=== PATIENT | female | born 1955 | race Caucasian/White ===

== ENCOUNTER → 2020-07-11 11:32 | Outpatient (BNVA) | payer MEDICARE, MEDICAID, SELFPAY | PROVIDERS: PCP Nurse Practitioner Family; Referring Provider Nurse Practitioner Family; Visit Provider Surgery | DX: Z76.89 Persons encountering health services in other specified circumstances (principal) ==

== ENCOUNTER → 2020-08-15 08:57 | Outpatient (BNVA) | payer MEDICARE, MEDICAID, SELFPAY | PROVIDERS: PCP Nurse Practitioner Family; Visit Provider Surgery | DX: Z76.89 Persons encountering health services in other specified circumstances (principal) ==

== ENCOUNTER 2020-11-07 14:12 | Outpatient (REF) | payer MEDICARE, MEDICAID, SELFPAY | END 2020-11-07 14:13 | disposition home or self-care (01) | LOC: HO.LAB 14:12 | PROVIDERS: Visit Provider Internal Medicine | DX: Z20.822 Contact with and (suspected) exposure to COVID-19 (principal) | CPT/HCPCS: 36415; C9803; U0003; U0005 ==

== ENCOUNTER 2021-02-16 13:45 | Outpatient (REF) | payer MEDICARE, OTHER, SELFPAY ==
[2021-02-16 15:27] LABS: Albumin Level 3.8 g/dL (3.5-5.0); Calcium 9.7 mg/dL (8.4-10.2)
[2021-02-16 15:56] LABS: Free T4 (Free Thyroxine) 1.08 ng/dL (0.71-1.85); Thyroid Stimulating Hormone 1.31 uIU/mL (0.32-4.0); Vitamin D 25-OH Total 34.3 ng/mL (>30)
== END 2021-02-16 13:46 | disposition home or self-care (01) ==
LOC: HO.LAB 13:45
PROVIDERS: PCP Nurse Practitioner Family; Visit Provider Internal Medicine Endocrinology, Diabetes & Metabolism
DX: E03.8 Other specified hypothyroidism (principal); E06.3 Autoimmune thyroiditis; E04.2 Nontoxic multinodular goiter; Z79.899 Other long term (current) drug therapy; Z86.39 Personal history of other endocrine, nutritional and metabolic disease
CPT/HCPCS: 36415; 82040; 82306; 82310; 84439; 84443; 99212

== ENCOUNTER 2021-02-27 12:37 | Outpatient (REF) | payer MEDICARE, OTHER, SELFPAY ==
--- NOTE | ~2021-02-27 | US_ITS ---
EXAMINATION: US THYROID CLINICAL INFORMATION: Nontoxic multinodular goiter. COMPARISON: Thyroid ultrasound 05/17/2020 and 09/08/2018. Ultrasound-guided thyroid biopsy 05/07/2019. TECHNIQUE: Linear transducer lynch-scale and color Doppler examination with attention to the region of the thyroid. FINDINGS: SIZE: Measurements of the thyroid lobes and nodules are given in sagittal, anteroposterior and transverse dimensions respectively. Right Thyroid Lobe: 4.0 x 2.3 x 2.4 cm, volume 11.8 mL. Previously 4.4 x 1.7 x 1.7 cm, volume 6.7 mL. Parenchyma: The gland echotexture is heterogeneous. Thyroid vascularity is increased. Left Thyroid Lobe: 4.5 x 1.8 x 1.7 cm, volume 7.2 mL. Previously 4.4 x 1.6 x 1.6 cm, volume 5.5 mL. Parenchyma: The gland echotexture is heterogeneous. Thyroid vascularity is increased. Isthmus: 0.7 cm in maximum AP dimension. Previously 0.6 cm. Estimated total number of nodules greater than or equal to 1 cm: 1. Manager Of Compliance nodules are described as follows: 1. Location: Right upper pole. Size: 1.0 x 0.6 x 1.0 cm, volume 0.3 mL. Previously: 1.2 x 0.8 x 1.2 cm, volume 1.1 mL. Nodule characteristics: Composition: Solid/almost completely solid (2). Echogenicity: Isoechoic (1). Shape: Not taller than wide (0). Margins: Smooth (0). Echogenic Foci: None (0). ACR TI-RADS total points: 3 ACR TI-RADS category: 3 Significant change in size (>/= 20% in 2 dimensions and minimal increase of 2 mm or 50% or greater increase in volume): No. Decreased size of nodule. Change in features: No Change in ACR TI-RADS risk category: No NODES: No lymphadenopathy is seen in the tissue surrounding the thyroid gland. US/US thyroid IMPRESSION: Enlarged heterogeneous hypervascular thyroid gland. Interval decrease in size in solitary right nodule. Compared to most recent exam May 2020. ACR TI-RADS RECOMMENDATION REFERENCE: Ultrasound-guided fine-needle aspiration, followup ultrasound, no further follow up. * TR1 (0 point) and TR 2 (2 points): No FNA or follow up * TR3 (3 points): FNA if more than or equal to 2.5 cm in maximum dimension, followup ultrasound in 1, 3 and 5 years if 1.5 to 2.4 cm in maximum dimension. * TR4 (4-6 points): FNA if more than or equal to 1.5 cm in maximum dimension, followup ultrasound in 1, 2, 3 and 5 years if 1 to 1.4 cm in maximum dimension. * TR5 (more than or equal to 7 points): FNA if more than or equal to 1 cm in maximum dimension, followup ultrasound every year for 5 years if 0.5 to 0.9 cm in maximum dimension. * TR3, TR4 or TR5 nodules that are below the size threshold for follow up receive no follow up.
== END 2021-02-27 12:38 | disposition home or self-care (01) ==
LOC: HO.US 12:37
PROVIDERS: Visit Provider Internal Medicine Endocrinology, Diabetes & Metabolism
DX: E04.2 Nontoxic multinodular goiter (principal)
CPT/HCPCS: 76536

== ENCOUNTER 2021-09-18 10:29 | Emergency (ER) | payer MEDICARE, OTHER, SELFPAY ==
--- NOTE | ~2021-09-18 | XR_ITS ---
EXAMINATION: CT HEAD XR LUMBAR SPINE CLINICAL INFORMATION: Fall and pain with back pain. COMPARISON: None. TECHNIQUE: 5 mm thin axial and reformatted 2 mm thin sagittal and coronal images of brain were obtained. DLP 615 mGy/cm. Lumbar spine 3 views FINDINGS: BRAIN: There is no acute intra-axial or extra-axial bleed, masses or midline shift. There is no acute infarction evolution. There is no edema. The lateral ventricles are symmetrical in size and configuration without enlargement. Bone windows with no calvarial abnormality. There is no scalp soft tissue abnormality. There is a small polyp or retention cyst left maxillary sinus. Rest of the paranasal sinuses are well aerated. LUMBAR SPINE: There is normal lumbar lordosis. The vertebral heights, alignment and disc heights are normal. There is no visible acute fracture, dislocation or lytic process seen. There is lateral spondylosis at L1-L2, L2-L3 and L3-L4 disc levels. No lytic process seen. The paravertebral soft tissues are normal. The SI joints are symmetrical and normal. XR/XR lumbar spine 2-3V IMPRESSION: No acute intracranial process seen. No acute fracture or dislocation lumbar spine. There is mild lateral spondylosis of upper lumbar spine.
--- NOTE | 2021-09-18 12:36 | ED_ITS ---
HPI - Fall General Stated Complaint: injury from fall (hit head) Time Seen by Provider: 09/18/21 12:35 Source: patient Mode of arrival: ambulatory Limitations: no limitations History of Present Illness HPI Narrative: 4 days ago patient fell down 5 stairs. She tripped over her skirt. Patient hit her head really hard. No LOC. Patient with increased low back pain and headache. No nausea or vomiting. MD complaint: fall Onset (ago): day(s) Fall from: standing and down stairs (#) (5) Fall witnessed: no Place fall occurred: home Loss of consciousness: none Symptoms prior to fall: none Context: tripped/slipped Location of injury: head and back Related Data Home Medications Medication Instructions Recorded Confirmed aspirin 81 mg tablet,delayed 81 mg PO DAILY 07/09/20 02/16/21 release cephalexin 500 mg capsule 500 mg PO Q12H 07/09/20 02/16/21 hydrochlorothiazide 25 mg tablet 25 mg PO DAILY 02/16/21 02/16/21 pantoprazole 40 mg tablet,delayed 40 mg PO DAILY 02/16/21 02/16/21 release sennosides 8.6 mg tablet [id number]? mg PO BEDTIME PRN 02/16/21 02/16/21 Previous Rx's Medication Instructions Recorded calcium citrate 500 mg PO BID 90 Days #360 tab 02/16/21 cholecalciferol (vitamin D3) 125 125 mcg PO DAILY 90 Days #90 tab 02/16/21 mcg (5,000 unit) tablet levothyroxine 75 mcg tablet 75 mcg PO DAILY 90 Days #90 tab 02/16/21 cyclobenzaprine 10 mg tablet 10 mg PO TID #10 tab 09/18/21 meloxicam 7.5 mg tablet (Mobic) 7.5 mg PO DAILY #14 tab 09/18/21 Allergies Allergy/AdvReac Type Severity Reaction Status Date / Time No Known Allergies Allergy Unverified 06/23/20 16:53 [No Known Allergies*] NKA Allergy Unknown Uncoded 02/04/20 00:00 Review of Systems Constitutional: Constitutional: Reports no additional constitutional complaints Eyes: Eyes: Reports no additional eye complaints ENT: Denies dizziness Cardiovascular: Cardiovascular: Reports no additional cardiovascular complaints Respiratory: Respiratory: Reports as per HPI Gastrointestinal: Gastrointestinal: Reports no additional gastrointestinal complaints Genitourinary: Genitourinary: Reports no additional female genitourinary complaints Musculoskeletal: Musculoskeletal: Reports no additional musculoskeletal complaints Integumentary/Breasts: Skin/Breast: Denies rash Neurologic: Reports system reviewed and no additional complaints, except as documented, Denies dizziness and Denies Sensory deficit (Neuro) Psychiatric: Psychiatric: Denies anxiety [facility] Past Medical History Medical History (Updated 09/18/21 @ 13:36 by Shar Cisneros MD) History of primary hyperparathyroidism Hypothyroidism Intestinal malabsorption Non-toxic multinodular goiter Obesity Surgical History (Updated 07/09/20 @ 10:42 by Abdirahman Miranda SYSTEMS TESTING LABORATORY TECHNICIAN) H/O hand surgery H/O knee surgery H/O partial thyroidectomy History of colonoscopy Hx of tubal ligation Family History Family History (Updated 07/09/20 @ 10:44 by Abdirahman Miranda SYSTEMS TESTING LABORATORY TECHNICIAN) Father No problems noted. Mother No problems noted. Brother No problems noted. Sister No problems noted. Sister No problems noted. Sister No problems noted. Sister No problems noted. Son No problems noted. Son No problems noted. Son No problems noted. Daughter Congenital hypothyroidism Social History Social History (Updated 07/27/20 @ 13:53 by Abdirahman Miranda SYSTEMS TESTING LABORATORY TECHNICIAN) Alcohol intake: never Advance Directives: No Advance Directives Information Provided: No Physical Exam Const: General: healthy appearing Nutritional Appearance: average body habitus Orientation/consciousness: oriented to person and patient oriented x3 Limitations: no limitations HENMT: Head: Yes normal to inspection Ears: external ears normal General nose exam: Normal external nose present Mouth: Normal oral and palatal mucosa present and oropharynx normal Throat: Yes posterior oropharynx normal Eyes: General: appearance normal, both eyes and all related structures Neck: Other: supple Neck: Yes normal visual inspection Chest: Chest palpation & inspection: normal inspection of the chest Resp: Auscultation: clear to auscultation bilaterally Cardio: Jugular venous distension: no JVD Rate: regular rate Rhythm: regular rhythm Heart sounds: S1 normal heart sound present and S2 normal heart sound present GI: Inspection: Yes normal to inspection Palpation (GI): Soft to palpation, nontender and No hepatosplenomegaly present Auscultation: normal bowel sounds : General: Yes no CVA tenderness Back/Spine/Pelvis: Back: no CVA tenderness Skin: General skin exam: no rashes or lesions noted Neuro: General: oriented to person and patient oriented x3 Cranial nerves: Yes CN's II-XII intact bilaterally Motor exam (neuro): 5/5 motor strength present throughout Sensory Exam: No Sensory deficit (Neuro) Extrem: General: Yes normal to inspection Psych: Appearance: grossly normal Course Reevaluation(s) Reevaluation #1: no fractures seen will get patient on NSAIDs and low dose muscle relaxant Time: 13:34 MDM - Fall Imaging Data lumbar spine, left hip, left ankle: Radiologist's impression: IMPRESSION: L3 compression deformity likely old. There are degenerative disc changes lower dorsal and upper lumbar spine. ? Degenerative changes right hip joint. There is no fracture or dislocation of the pelvis or the left hip. ? No acute fracture or dislocation left ankle. There is a lateral plate and screws for an old healed fibular fracture and a solitary compression screw for a right medial malleolar fracture. Discharge Plan Discharge Clinical Impression: Back strain Qualifiers: Encounter type: initial encounter Qualified Code(s): S39.012A - Strain of muscle, fascia and tendon of lower back, initial encounter Contusion of hip Qualifiers: Encounter type: initial encounter Laterality: left Qualified Code(s): S70.02XA - Contusion of left hip, initial encounter Ankle sprain Qualifiers: Encounter type: initial encounter Involved ligament of ankle: unspecified ligament Laterality: left Qualified Code(s): S93.402A - Sprain of unspecified ligament of left ankle, initial encounter Patient Disposition: Home, Self-Care Instructions: Ankle Sprain (ED), Acute Low Back Pain (ED), Hip Contusion (ED) Prescriptions: New meloxicam [Mobic] 7.5 mg tablet 7.5 mg PO DAILY Qty: 14 RF: 0 cyclobenzaprine 10 mg tablet 10 mg PO TID Qty: 10 RF: 0 No Action pantoprazole 40 mg tablet,delayed release (DR/EC) 40 mg PO DAILY RF: 0 sennosides 8.6 mg tablet [id number]? mg PO BEDTIME PRN (Reason: constipation) RF: 0 hydrochlorothiazide 25 mg tablet 25 mg PO DAILY RF: 0 levothyroxine 75 mcg tablet 75 mcg PO DAILY 90 Days Qty: 90 RF: 3 calcium citrate 250 mg calcium tablet 500 mg PO BID 90 Days Qty: 360 RF: 3 cholecalciferol (vitamin D3) 125 mcg (5,000 unit) tablet 125 mcg PO DAILY 90 Days Qty: 90 RF: 3 cephalexin 500 mg capsule 500 mg PO Q12H RF: 0 aspirin 81 mg tablet,delayed release (DR/EC) 81 mg PO DAILY RF: 0 Referrals: Physician,Unknown J [Primary Care Provider] - 1 week
[2021-09-18 15:47] VITALS: BP 183/94; PULSE 58; RESP 16; TEMP 36.7; O2SAT 98; BMI 31.8
== END 2021-09-18 17:27 | disposition home or self-care (01) ==
PROVIDERS: Emergency Provider Emergency Medicine
DX: S39.012A Strain of muscle, fascia and tendon of lower back, initial encounter (principal); S70.02XA Contusion of left hip, initial encounter; S93.402A Sprain of unspecified ligament of left ankle, initial encounter; W10.9XXA Fall (on) (from) unspecified stairs and steps, initial encounter; Y93.9 Activity, unspecified; Y92.009 Unspecified place in unspecified non-institutional (private) residence as the place of occurrence of the external cause; Y99.9 Unspecified external cause status
CPT/HCPCS: 70450; 72100; 99283; 99284

== ENCOUNTER 2021-12-25 13:34 | Outpatient (REF) | payer MEDICARE, OTHER, SELFPAY ==
[2021-12-25 15:13] LABS: MANUAL DIFF FLAG NO
[2021-12-25 15:32] LABS: Basophils Percent Auto 0.6 % (0-2); Eosinophils Absolute Auto 0.2 X10*3/uL (0.0-0.4); Eosinophils Percent Auto 3.4 % (0-4); Hematocrit 34.1 % (37.0-47.0); Hemoglobin 11.3 g/dl (12.0-16.0); Imm Gran Abs Auto 0.02 X10*3/uL (0.00-0.03); Imm Gran Pct Auto 0.4 % (0.0-0.4); Lymphocytes Percent Auto 38.6 % (20-40); Mean Corpuscular HGB Conc 33.1 g/dl (31.0-35.0); Mean Corpuscular Hemoglobin 28.4 pg (27.0-33.0); Mean Corpuscular Volume 85.7 fL (80.0-98.0); Mean Platelet Volume 10.4 fL (9.4-12.3); Monocytes Absolute Auto 0.4 X10*3/uL (0.1-1.2); Monocytes Percent Auto 8.1 % (2-11); Neutrophils Absolute Auto 2.6 x10*3/uL (2.0-8.3); Neutrophils Percent Auto 48.9 % (45-73); Platelet Count 313 X10*3/uL (160-400); Red Blood Count 3.98 X10*6/uL (4.20-5.50); White Blood Count 5.3 X10*3/uL (4.8-10.8)
[2021-12-25 15:44] LABS: Estimated Average Glucose 105 mg/dL; Hemoglobin A1c % 5.3 %
[2021-12-25 16:14] LABS: Anion Gap 10 (12-20); Blood Urea Nitrogen 21 mg/dL (9-16); C Reactive Protein 0.44 mg/dL (< or = 0.50); Calcium 9.7 mg/dL (8.4-10.2); Carbon Dioxide 29 mmol/L (22-29); Chloride 104 mmol/L (96-108); Cholesterol 211 mg/dL; Estimated Glomerular Filt Rate 58; Glucose Random 86 mg/dL (60-115); HDL Cholesterol 44 mg/dL; Iron 96 mcg/dL (30-160); LDL Cholesterol Calculated 146 mg/dl; Percent Iron Saturation 27 % (15-50); Potassium 4.4 mmol/L (3.3-5.1); Sodium 139 mmol/L (135-145); Total Iron Binding Capacity 359 mcg/dL (228-428); Triglycerides 105 mg/dL; Unsaturated Iron Binding 263 ug/dL
[2021-12-25 16:37] LABS: TSH reflex Free T4 1.11 uIU/mL (0.32-4.0); Vitamin D 25-OH Total 35.6 ng/mL (>30)
[2021-12-25 16:39] LABS: Ferritin 53 ng/mL (10-250)
[2021-12-25 16:48] LABS: Folate 10.7 ng/mL (> or = 4.0); Vitamin B12 163 pg/mL (200-900)
[2021-12-27 22:37] LABS: Calcium (PTHI) 9.7 mg/dL (8.6-10.4); PTHI 98 pg/mL (16-77)
[2021-12-29 11:27] LABS: Vitamin B1 11 nmol/L (8-30)
[2021-12-29 15:01] LABS: Zinc 70 mcg/dL (60-130)
[2022-01-02 18:36] LABS: Vitamin A 51 mcg/dL (38-98)
== END 2021-12-25 13:35 | disposition home or self-care (01) ==
LOC: HO.LAB 13:34
PROVIDERS: Visit Provider Physician Assistant Surgical
DX: E66.9 Obesity, unspecified (principal); Z68.35 Body mass index [BMI] 35.0-35.9, adult; Z71.3 Dietary counseling and surveillance; E03.9 Hypothyroidism, unspecified; E04.2 Nontoxic multinodular goiter
CPT/HCPCS: 36415; 80048; 80061; 82306; 82607; 82728; 82746; 83036; 83540; 83970; 84425; 84443; 84590; 84630; 85025; 86140; 99212

== ENCOUNTER 2022-04-05 13:32 | Outpatient (REF) | payer MEDICARE, MEDICAID, SELFPAY ==
--- NOTE | ~2022-04-05 | MM_ITS ---
EXAMINATION: MM SCREENING DIGITAL BREAST TOMOSYNTHESIS, BILATERAL CLINICAL INFORMATION: Screening. Asymptomatic. The lifetime risk of breast cancer based on the Tyrer-Cuzick Model is 4%. COMPARISON: Mammography: 06/21/2020, 06/09/2019, 05/26/2018 TECHNIQUE: Digital breast tomosynthesis is performed in both the craniocaudal and mediolateral oblique views along with computer-aided detection (CAD). Synthesized 2D images are generated from the tomosynthesis. FINDINGS: There are scattered areas of fibroglandular density (ACR BI-RADS breast composition Category b). There are no significant masses, abnormal calcifications, or other abnormalities. Parenchymal pattern is similar to prior studies. The skin contours are smooth. MM/MM tomosynthesis screening BI IMPRESSION: No mammographic evidence of malignancy. ASSESSMENT: BI-RADS 1: Negative RECOMMENDATION: Routine annual mammography screening. This patient's information was entered into a reminder system with a target due date for their next mammogram.
--- NOTE | ~2022-04-05 | MM_ITS ---
EXAMINATION: BONE DENSITOMETRY CLINICAL INDICATION: Menopause. COMPARISON: Previous BD dated 06/17/2018 and baseline BD dated 05/23/2010. TECHNIQUE: Using a foc.us DXA System (software version: 13.1) manufactured by [employer], dual-energy x-ray absorptiometry was performed of the lumbar spine and left hip. The images are of good technical quality. Summary results are attached. FINDINGS: AP SPINE L1-L4: Current: BMD 1.119 g/cm2, Z-score 0.0, T-score -0.5, normal, 1.1% decrease from previous, 10.4% increase from baseline (<5% change is not significant). Prior: BMD 1.131 g/cm2. Baseline: BMD 1.014 g/cm2. LEFT FEMUR, NECK: Current: BMD 0.789 g/cm2, Z-score -0.9, T-score -1.8, osteopenia. Prior: BMD 0.958 g/cm2. Baseline: BMD 0.928 g/cm2. LEFT FEMUR, TOTAL: Current: BMD 0.877 g/cm2, Z-score -0.4, T-score -1.0, normal, 19.2% decrease from previous, 15.8% decrease from baseline (<5% change is not significant). Prior: BMD 1.085 g/cm2. Baseline: BMD 1.041 g/cm2. IDENTIFIED RISK FACTORS: Menopause, recurrent falls, height loss, secondary osteoporosis. HISTORY OF FRACTURE: None listed. MEDICATIONS: Calcium supplements or multivitamin, vitamin D. MM/XR DEXA axial skeleton IMPRESSION: 1. DIAGNOSIS: Osteopenia based on the lowest T-score value of -1.8 in the femoral neck applying World Health Organization criteria. 2. 10-YEAR FRACTURE RISK PREDICTION, FRAX: Major osteoporotic fracture (clinical spine, forearm, hip or shoulder) 5.2%. Hip fracture 0.8%. 3. Treatment Recommendations: NOF guidelines recommend consideration for treatment in postmenopausal women and men age 50 and older presenting with the following: -A hip or vertebral (clinical or morphometric) fracture. -T-score less than or equal to -2.5 at the femoral neck or spine after appropriate evaluation to exclude secondary causes. -Low bone mass at the hip or spine and a 10-year fracture probability by FRAX of greater than or equal to 3% for hip fracture or greater than or equal to 20% for major osteoporotic fracture based on the [place] adapted WHO algorithm. 4. Other Recommendations: All treatment decisions require clinical judgment and consideration of individual patient factors, including patient preferences, comorbidities, previous drug use, risk factors not captured in the FRAX model (e.g. frailty, falls, vitamin D deficiency, increased bone turnover, interval significant decline in bone density) and possible under or overestimation of fracture risk by FRAX. Additional medical evaluation for secondary cause of low bone mineral density may be appropriate. FUTURE SCAN RECOMMENDATION: People with diagnosed cases of osteoporosis or at high risk for fracture should have regular bone mineral density tests. For patients eligible for Medicare, routine testing is allowed once every 2 years. The testing frequency can be increased to one year for patients who have rapidly progressing disease, those who are receiving or discontinuing medical therapy to restore bone mass, or have additional risk factors.
== END 2022-04-05 13:33 | disposition home or self-care (01) ==
LOC: HO.MAMMO 13:32
PROVIDERS: Visit Provider Nurse Practitioner Family
DX: Z12.31 Encounter for screening mammogram for malignant neoplasm of breast (principal); Z13.820 Encounter for screening for osteoporosis; Z78.0 Asymptomatic menopausal state
CPT/HCPCS: 77063; 77067; 77080

== ENCOUNTER 2022-04-26 15:10 | Outpatient (REF) | payer MEDICARE, MEDICAID, SELFPAY ==
[2022-04-27 11:17] LABS: Calcium (PTHI) 9.1 mg/dL (8.6-10.4); PTHI 113 pg/mL (16-77)
== END 2022-04-26 15:11 | disposition home or self-care (01) ==
LOC: HO.LAB 15:10
PROVIDERS: PCP Registered Nurse Community Health; Visit Provider Internal Medicine Endocrinology, Diabetes & Metabolism
DX: E04.2 Nontoxic multinodular goiter (principal); E03.8 Other specified hypothyroidism; E06.3 Autoimmune thyroiditis; Z86.39 Personal history of other endocrine, nutritional and metabolic disease
CPT/HCPCS: 36415; 83970; 99212

== ENCOUNTER 2023-06-06 09:06 | Outpatient (REF) | payer MEDICARE, MEDICAID, SELFPAY ==
[2023-06-06 12:26] LABS: Alanine Aminotransferase 7 U/L (0-31); Albumin Level 3.7 g/dL (3.5-5.0); Alkaline Phosphatase 91 U/L (39-117); Anion Gap 11 (12-20); Aspartate Amino Transferase 11 U/L (5-31); Bilirubin Total 0.5 mg/dL (0.0-1.0); Blood Urea Nitrogen 13 mg/dL (9-16); Calcium 9.6 mg/dL (8.4-10.2); Carbon Dioxide 27 mmol/L (22-29); Chloride 107 mmol/L (96-108); Cholesterol 219 mg/dL (<200); Estimated Glomerular Filt Rate > 60; Glucose Random 94 mg/dL (60-115); HDL Cholesterol 46 mg/dL (>40); LDL Cholesterol Calculated 156 mg/dL (<100); Potassium 4.1 mmol/L (3.3-5.1); Sodium 141 mmol/L (135-145); Total Protein 7.7 g/dL (6.5-8.0); Triglycerides 89 mg/dL (<150)
== END 2023-06-06 09:07 | disposition home or self-care (01) ==
LOC: HO.HHCL 09:06
PROVIDERS: Visit Provider Registered Nurse
DX: I10 Essential (primary) hypertension (principal)
CPT/HCPCS: 36415; 80053; 80061

== ENCOUNTER 2023-11-04 10:27 | Outpatient (REF) | payer MEDICARE, MEDICAID, SELFPAY ==
--- NOTE | ~2023-11-04 | XR_ITS ---
EXAMINATION: XR SHOULDER, RIGHT CLINICAL INFORMATION: Pain in AC joint with impingement tests. Patient states she noted after her shingles shot in June she has had pain in her right shoulder. COMPARISON: None available. TECHNIQUE: 5 views of the right shoulder. FINDINGS: Moderate degenerative changes in the acromioclavicular joint with joint space narrowing and hypertrophic change. Narrowing of the subacromial space on images provided. There is a superficial soft tissue tubular defect overlying the acromioclavicular joint, possibly related to external strap and recommend correlation with clinical exam for confirmation. Degenerative changes with hypertrophic change along the glenoid. XR/XR shoulder RT min 2V IMPRESSION: Moderate degenerative changes.
[2023-11-04 12:24] LABS: Parathyroid Hormone Intact 131.3 pg/mL (8.7-77.1)
[2023-11-04 12:28] LABS: Anion Gap 10 (12-20); Blood Urea Nitrogen 14 mg/dL (9-16); Calcium 9.3 mg/dL (8.4-10.2); Carbon Dioxide 28 mmol/L (22-29); Chloride 108 mmol/L (96-108); Estimated Glomerular Filt Rate > 60; Glucose Random 71 mg/dL (60-115); Potassium 3.9 mmol/L (3.3-5.1); Sodium 142 mmol/L (135-145)
[2023-11-04 13:11] LABS: Free T4 (Free Thyroxine) 1.16 ng/dL (0.71-1.85); TSH reflex Free T4 1.79 uIU/mL (0.32-4.0)
[2023-11-05 08:09] LABS: Triiodothyronine T3 Total 118 ng/dL (76-181)
== END 2023-11-04 10:28 | disposition home or self-care (01) ==
LOC: HO.HHCL 10:27
PROVIDERS: Visit Provider General Practice
DX: E21.3 Hyperparathyroidism, unspecified (principal); E03.9 Hypothyroidism, unspecified; M25.511 Pain in right shoulder; G89.29 Other chronic pain
CPT/HCPCS: 36415; 73030; 80048; 83970; 84439; 84443; 84480

== ENCOUNTER 2024-02-03 12:46 | Outpatient (REF) | payer MEDICARE, MEDICAID, SELFPAY ==
[2024-02-03 16:36] LABS: Estimated Average Glucose 114 mg/dL; Hemoglobin A1c % 5.6 % (<6.0)
[2024-02-03 17:45] LABS: Alanine Aminotransferase 9 U/L (0-31); Albumin Level 3.7 g/dL (3.5-5.0); Alkaline Phosphatase 91 U/L (39-117); Anion Gap 13 (12-20); Aspartate Amino Transferase 14 U/L (5-31); Bilirubin Total 0.4 mg/dL (0.0-1.0); Blood Urea Nitrogen 13 mg/dL (9-16); Calcium 9.2 mg/dL (8.4-10.2); Carbon Dioxide 26 mmol/L (22-29); Chloride 108 mmol/L (96-108); Estimated Glomerular Filt Rate > 60; Glucose Random 86 mg/dL (60-115); Potassium 4.3 mmol/L (3.3-5.1); Sodium 143 mmol/L (135-145); Total Protein 7.7 g/dL (6.5-8.0)
[2024-02-03 18:00] LABS: TSH reflex Free T4 1.52 uIU/mL (0.32-4.0)
== END 2024-02-03 12:47 | disposition home or self-care (01) ==
LOC: HO.HHCL 12:46
PROVIDERS: Visit Provider General Practice
DX: E66.01 Morbid (severe) obesity due to excess calories (principal); R73.03 Prediabetes; R79.9 Abnormal finding of blood chemistry, unspecified; Z68.38 Body mass index [BMI] 38.0-38.9, adult
CPT/HCPCS: 36415; 80053; 83036; 84443

== ENCOUNTER 2024-03-19 14:37 | Outpatient (REF) | payer MEDICARE, SELFPAY ==
[2024-03-19 16:46] LABS: Calcium 9.5 mg/dL (8.4-10.2); Lipase 17 U/L (8-78); Magnesium 1.9 mg/dL (1.6-2.6)
[2024-03-19 17:02] LABS: TSH reflex Free T4 1.86 uIU/mL (0.32-4.0)
[2024-03-24 13:38] LABS: Vitamin D 25-OH, D2 <4 ng/mL; Vitamin D 25-OH, D3 26 ng/mL; Vitamin D 25-OH, Total 26 ng/mL (30-100)
== END 2024-03-19 14:38 | disposition home or self-care (01) ==
LOC: HO.LAB 14:37
PROVIDERS: PCP Registered Nurse Community Health; Visit Provider Nurse Practitioner Family
DX: K59.01 Slow transit constipation (principal); R13.14 Dysphagia, pharyngoesophageal phase; R10.13 Epigastric pain; K21.9 Gastro-esophageal reflux disease without esophagitis; K22.4 Dyskinesia of esophagus; E55.9 Vitamin D deficiency, unspecified; R10.9 Unspecified abdominal pain; R13.10 Dysphagia, unspecified; Z86.39 Personal history of other endocrine, nutritional and metabolic disease
CPT/HCPCS: 36415; 82306; 82310; 83690; 83735; 84443; 99202

== ENCOUNTER 2024-03-19 14:37 | Outpatient (AMB) | payer MEDICARE, SELFPAY ==
--- NOTE | 2024-03-19 14:39 | MHC.OFFVIS ---
Vital Signs 03/19/24 14:45 Height 5 ft Weight 192 lb 10.944 oz BMI 37.6 BP 140/98 H Blood Pressure Location Rt brachial Position Sitting Pulse 66 Pulse Source Pulse Oximeter Pulse Oximetry (%) 98 Oxygen Delivery Method Room Air Intake Visit Reasons: Dysphagia Intake Note: Minnie presents to the office today for an initial assessment visit. CC; Pt referred for dysphagia. Pt reports that this in their primary concern. Pt reports having onset approximatley 1 year ago. Pt reports that it is idiopathic in nature and has no provoking factors. Pt states that their sx are fairly consistent and rarely ever subside. [employer] [place] [facility] Required: No Allergies No Known Allergies [No Known Allergies*] Allergy (Verified 03/19/24 14:43) HPI HPI Dysphagia: Details: 68-year-old female with past medical history of hypertension, hypothyroidism, obesity, osteoporosis, hyperparathyroidism, status post partial parathyroidectomy, hyperlipidemia, s/p LSG with HH repair in April [address] Blake is here today for initial consultation. Patient has been having symptoms of increased trouble swallowing. Patient reports that it happens mainly in her throat and just below. Patient has trouble swallowing rice and solid food. No trouble swallowing liquids. Last upper endoscopy was done for dysphagia in May [address] Motta and it showed esophageal dysmotility and gastritis. Patient currently is not taking any PPI. Does report occasional postprandial epigastric pain. Patient also admits to having constipation. No bowel movement for 2-3 days. Patient admits to straining when having a bowel movement. Patient states that she takes [id number] stool softeners occasionally. Patient denies any abdominal bloating. Patient denies any melena, hematochezia, unintentional weight loss or ribbon like stools. Patient denies dyspepsia or odynophagia. Last colonoscopy was in [address] Handley, no polyps found. Recommendation was made for patient to return for colorectal screening in 10 years. Patient denies any nausea or vomiting. Denies any other GI concerning symptoms [facility] Medical History (Updated 03/19/24 @ 15:19 by Missy Mayen TRAUMA DOCTOR-) Dysphagia History of primary hyperparathyroidism Non-toxic multinodular goiter Hypothyroidism Obesity Intestinal malabsorption Surgical History H/O parathyroidectomy S/P fine needle aspiration H/O hand surgery History of colonoscopy Hx of tubal ligation H/O knee surgery Family History Father No problems noted. Mother No problems noted. Brother No problems noted. Sister No problems noted. Sister No problems noted. Sister No problems noted. Sister No problems noted. Son No problems noted. Son No problems noted. Son No problems noted. Daughter Congenital hypothyroidism Social History Alcohol intake: never Review of Systems Const Denies weight gain and Denies weight loss ENT Reports no additional complaints, Reports dysphagia and Denies odynophagia Card Reports no additional complaints Resp Reports no additional complaints GI Denies abdominal pain, Denies belching, Denies melena, Reports bloating, Denies change in bowel habits, Reports constipation, Reports dysphagia, Denies excessive flatus, Denies dyspepsia, Reports heartburn, Denies diarrhea, Denies loose stools, Denies nausea, Denies odynophagia and Denies vomiting Reports no additional complaints Musc Reports no additional complaints Neuro Reports no additional complaints Psych Reports no additional complaints Endo Reports no additional complaints Physical Exam Vital Signs: Last Vital Signs Pulse 66 03/19/24 14:45 BP 140/98 H 03/19/24 14:45 Pulse Ox 98 03/19/24 14:45 Oxygen Delivery Method Room Air 03/19/24 14:45 BMI result Body Mass Index 37.6 Const General: healthy appearing and no acute distress Nutritional Appearance: obese Orientation/consciousness: patient oriented x3 Resp Effort & Inspection: normal respiratory effort, able to speak in complete sentences, no tracheal deviation and symmetric chest movement Auscultation: clear to auscultation bilaterally Cardio Rate: regular rate GI Inspection: Yes normal to inspection, No distended and Yes obesity Palpation (GI): Soft to palpation, not firm, nontender and No hepatosplenomegaly present Auscultation: normal bowel sounds General: Yes no CVA tenderness Back/Spine/Pelvis Back: no CVA tenderness Skin General skin exam: elasticity normal, turgor normal and dry skin Neuro General: patient oriented x3 Psych Appearance: grossly normal Mental Status: mental status grossly normal Assessment & Plan Assessment & Plan (1) History of primary hyperparathyroidism: Code(s): Z86.39 - Personal history of other endocrine, nutritional and metabolic disease Category: Medical (2) Dysphagia: Code(s): R13.10 - Dysphagia, unspecified Category: Medical Qualifiers: Dysphagia type: pharyngoesophageal phase Qualified Code(s): R13.14 - Dysphagia, pharyngoesophageal phase (3) Postprandial epigastric pain: Code(s): R10.13 - Epigastric pain (4) GERD (gastroesophageal reflux disease): Code(s): K21.9 - Gastro-esophageal reflux disease without esophagitis Qualifiers: Esophagitis presence: esophagitis presence not specified Qualified Code(s): K21.9 - Gastro-esophageal reflux disease without esophagitis (5) Constipation: Code(s): K59.00 - Constipation, unspecified Qualifiers: Constipation type: slow transit constipation Qualified Code(s): K59.01 - Slow transit constipation Plan Patient will start taking omeprazole every morning half an hour before breakfast. Avoid dietary triggers and late night snacking. Patient was instructed to chew her food and with every bite, drink fluids. Barium swallow ordered. Reports constipation, Senokot 2 tablets every evening. Increase fluid intake and activity to promote better bowel motility. Patient will follow-up in the office in 2 months, sooner on as needed basis. Patient is agreeable to this plan and verbalizes understanding of instructions. She was given the opportunity to ask questions and all questions answered. Thank you for allowing me to participate in her care Orders: Orders Calcium 03/19/24 Z86.39 - Personal history of other endocrine, nutritional and metabolic disease Magnesium 03/19/24 K22.4 - Dyskinesia of esophagus Vitamin D 25-OH (D2 and D3) 03/19/24 E55.9 - Vitamin D deficiency, unspecified Lipase 03/19/24 R10.9 - Unspecified abdominal pain TSH reflex Free T4 03/19/24 K59.00 - Constipation, unspecified [place] upper GI w Ba Swallow 03/19/24 R13.10 - Dysphagia, unspecified Medications: New omeprazole 20 mg PO DAILY 30 caps 2RF K21.9 - Gastro-esophageal reflux disease without esophagitis sennosides (Natural Senna Laxative) 17.2 mg (2 x 8.6 mg) PO BEDTIME 60 tabs 3RF constipation K59.00 - Constipation, unspecified Coding Level of Care Code New Pt Level 4 (37986) Diagnoses History of primary hyperparathyroidism Z86.39 Pharyngoesophageal dysphagia R13.14 Dysphagia type: pharyngoesophageal phase Postprandial epigastric pain R10.13 Gastroesophageal reflux disease, unspecified whether esophagitis present K21.9 Esophagitis presence: esophagitis presence not specified Slow transit constipation K59.01 Constipation type: slow transit constipation Time Spent (min) 45 Comment 30 minutes spent with patient and additional 15 minutes spent reviewing her records
[2024-03-19 14:45] VITALS: BP 140/98; PULSE 66; O2SAT 98; BMI 37.6
== END 2024-03-19 15:06 | disposition home or self-care (01) ==
PROVIDERS: PCP Registered Nurse Community Health; Visit Provider Nurse Practitioner Family
DX: Z86.39 Personal history of other endocrine, nutritional and metabolic disease (principal); R13.14 Dysphagia, pharyngoesophageal phase; R10.13 Epigastric pain; K21.9 Gastro-esophageal reflux disease without esophagitis; K59.01 Slow transit constipation
CPT/HCPCS: 99204

== ENCOUNTER 2024-03-30 07:36 | Outpatient (REF) | payer MEDICARE, SELFPAY ==
--- NOTE | ~2024-03-30 | FL_ITS ---
EXAMINATION: XR FLUOROSCOPY UPPER GI WITH AIR CLINICAL INFORMATION: Dysphagia. History of sleeve gastrectomy COMPARISON: None TECHNIQUE: Fluoroscopic air contrast upper GI examination was performed utilizing standard techniques with thin and thick barium and effervescent granules. Numerous spot images were obtained. FINDINGS: Lateral cine images of the oropharynx and hypopharynx demonstrate normal swallow mechanism with normal epiglottic inversion and soft palate elevation. There is trace laryngeal penetration with thick barium. No tracheal penetration, glottic or subglottic aspiration identified. No nasopharyngeal reflux present. There is an irregular appearance of the anterior cervical esophagus at the level of C6 (RF 1-2, image 25). A small Zenker's diverticulum is present. Hypopharyngeal structures appear normal without evidence of mass or diverticulum. There is mild cricopharyngeal achalasia present. Dual and single contrast images of the esophagus demonstrates mildly tortuous course. No evidence of stricture, mass, or large ulcerations identified. Granular appearance of the mucosa suggests esophagitis. Esophageal peristalsis is mildly disorganized. A small type I hiatal hernia is present. Gastroesophageal reflux is seen up to the aortic arch. Dual contrast and single contrast images of the stomach demonstrated a contour consistent with prior history of sleeve gastrectomy. Evaluation of the gastric mucosa is limited due to lack of distention from poor tolerance of the effervescent granules. Grossly no mucosal abnormality. No mass. Contrast freely passed into the gastric antrum and duodenal bulb without delay. Single and air-contrast images of the duodenal bulb demonstrate no abnormality. Tiny diverticulum in segment 2, and segment 3. The duodenal sweep has a normal appearance, course, and mucosal fold appearance. No malrotation. The imaged proximal jejunum has a normal fold pattern and caliber. FLUOROSCOPY TIME: 3 minutes 23 seconds Number of Spot Images: 11 Number of Cine: 13 DOSE AREA PRODUCT: 2290 uGy-m2 (microgray-meter squared) FL/FL upper GI w air w Ba Swallow IMPRESSION: 1. Trace laryngeal penetration with thick barium. 2. There is a mildly irregular appearance of the anterior cervical esophagus at the level of the cricopharyngeus of unknown clinical etiology/significance. Recommend direct visualization on endoscopy. 3. Small Zenker's diverticulum. 4. Mild cricopharyngeal achalasia. 5. Mildly disorganized esophageal peristalsis. Granular mucosa of the esophagus suggesting esophagitis. 6. Small type I hiatal hernia with moderate gastroesophageal reflux. 7. Postsurgical changes consistent with prior history of sleeve gastrectomy. Evaluation of the gastric mucosa is limited due to lack of distention from poor tolerance of the effervescent granules.. This procedure was performed by Juan Carlos Bowling PA-C, and supervised by Dr. Simms
== END 2024-03-30 07:37 | disposition home or self-care (01) ==
LOC: HO.XRAY 07:36
PROVIDERS: Visit Provider Nurse Practitioner Family
DX: R13.10 Dysphagia, unspecified (principal)
CPT/HCPCS: 74246

== ENCOUNTER → 2024-03-30 07:36 | Outpatient (BNV) | payer MEDICARE, SELFPAY | PROVIDERS: Visit Provider Physician Assistant Surgical | DX: R13.10 Dysphagia, unspecified (principal) | CPT/HCPCS: 74246 ==

== ENCOUNTER 2024-05-25 14:46 | Outpatient (AMB) | payer MEDICARE, MEDICAID, SELFPAY ==
--- NOTE | 2024-05-25 15:02 | MHC.OFFVIS ---
Vital Signs 05/25/24 15:03 Height 5 ft Weight 194 lb 0.108 oz BMI 37.9 BP 142/84 H Blood Pressure Location Rt brachial Position Sitting Pulse 64 Pulse Source Pulse Oximeter Pulse Oximetry (%) 96 Oxygen Delivery Method Room Air Intake Visit Reasons: 2 month follow up Intake Note: Minnie presents in office today for a scheduled 2 mos FUV. CC; Pt reports that they have remained stable since their last visit. Pt denies any new concerns or sx at this time. Pt denies the necessity of any Rx refills at this time. Operations/Dispatch Required: No Allergies No Known Allergies [No Known Allergies*] Allergy (Verified 05/25/24 15:02) HPI HPI 2 month follow up: Details: LAST VISIT History of primary hyperparathyroidism Dysphagia Postprandial epigastric pain GERD (gastroesophageal reflux disease) Constipation Plan Patient will start taking omeprazole every morning half an hour before breakfast. Avoid dietary triggers and late night snacking. Patient was instructed to chew her food and with every bite, drink fluids. Barium swallow ordered. Reports constipation, Senokot 2 tablets every evening. Increase fluid intake and activity to promote better bowel motility. Patient will follow-up in the office in 2 months, sooner on as needed basis. Patient is agreeable to this plan and verbalizes understanding of instructions. She was given the opportunity to ask questions and all questions answered. ? Thank you for allowing me to participate in her care Orders Orders Calcium 03/19/24 Z86.39 Magnesium 03/19/24 K22.4 Vitamin D 25-OH (D2 and D3) 03/19/24 E55.9 Lipase 03/19/24 R10.9 TSH reflex Free T4 03/19/24 K59.00 FL upper GI w Ba Swallow 03/19/24 R13.10 Medications New omeprazole 20 mg PO DAILY 30 caps 2RF K21.9 sennosides (Natural Senna Laxative) 17.2 mg (2 x 8.6 mg) PO BEDTIME 60 tabs 3RF constipation K59.00 TODAY'S VISIT Patient is here today for follow-up and to discuss lab results and upper GI series results. Patient continues to have dysphagia disorder denies esophageal motility seen on study. Patient was diagnosed with esophageal dysmotility back in 2018 via upper endoscopy. Patient reports that she feels like the omeprazole is not working. Patient states that senna helps her move her bowels, however she feels like she does not empty completely. Patient still reports postprandial abdominal bloating. Patient denies melena, hematochezia, unintentional weight loss or ribbon like stools. Patient reports that her last colonoscopy was more than 10 years ago. [facility] Medical History Dysphagia History of primary hyperparathyroidism Non-toxic multinodular goiter Hypothyroidism Obesity Intestinal malabsorption Surgical History H/O parathyroidectomy S/P fine needle aspiration H/O hand surgery History of colonoscopy Hx of tubal ligation H/O knee surgery Family History Father No problems noted. Mother No problems noted. Brother No problems noted. Sister No problems noted. Sister No problems noted. Sister No problems noted. Sister No problems noted. Son No problems noted. Son No problems noted. Son No problems noted. Daughter Congenital hypothyroidism Social History Alcohol intake: never Review of Systems Const Denies weight gain and Denies weight loss ENT Reports no additional complaints, Reports dysphagia and Denies odynophagia Card Reports no additional complaints Resp Reports no additional complaints GI Denies abdominal pain, Denies belching, Denies melena, Reports bloating, Denies change in bowel habits, Reports constipation, Reports dysphagia, Denies excessive flatus, Denies dyspepsia, Reports heartburn, Denies diarrhea, Denies loose stools, Denies nausea, Denies odynophagia and Denies vomiting Reports no additional complaints Musc Reports no additional complaints Neuro Reports no additional complaints Psych Reports no additional complaints Endo Reports no additional complaints Physical Exam Vital Signs: Last Vital Signs Pulse 64 05/25/24 15:03 BP 142/84 H 05/25/24 15:03 Pulse Ox 96 05/25/24 15:03 Oxygen Delivery Method Room Air 05/25/24 15:03 BMI result Body Mass Index 37.9 Const General: healthy appearing and no acute distress Nutritional Appearance: obese Orientation/consciousness: patient oriented x3 Resp Effort & Inspection: normal respiratory effort, able to speak in complete sentences, no tracheal deviation and symmetric chest movement Auscultation: clear to auscultation bilaterally Cardio Rate: regular rate GI Inspection: Yes normal to inspection, No distended and Yes obesity Palpation (GI): Soft to palpation, not firm, nontender and No hepatosplenomegaly present Auscultation: normal bowel sounds General: Yes no CVA tenderness Back/Spine/Pelvis Back: no CVA tenderness Skin General skin exam: elasticity normal, turgor normal and dry skin Neuro General: patient oriented x3 Psych Appearance: grossly normal Mental Status: mental status grossly normal Results Reviewed Results Reviewed: Laboratory Tests 03/19/24 15:28 Calcium 9.5 Magnesium 1.9 Lipase 17 25-OH Vitamin D Total 26 L TSH 1.86 UPPER GI SERIES IMPRESSION: 1. Trace laryngeal penetration with thick barium. 2. There is a mildly irregular appearance of the anterior cervical esophagus at the level of the cricopharyngeus of unknown clinical etiology/significance. Recommend direct visualization on endoscopy. 3. Small Zenker's diverticulum. 4. Mild cricopharyngeal achalasia. 5. Mildly disorganized esophageal peristalsis. Granular mucosa of the esophagus suggesting esophagitis. 6. Small type I hiatal hernia with moderate gastroesophageal reflux. 7. Postsurgical changes consistent with prior history of sleeve gastrectomy. Evaluation of the gastric mucosa is limited due to lack of distention from poor tolerance of the effervescent granules.. This pr Assessment & Plan Assessment & Plan (1) History of primary hyperparathyroidism: Code(s): Z86.39 - Personal history of other endocrine, nutritional and metabolic disease Category: Medical (2) Dysphagia: Code(s): R13.10 - Dysphagia, unspecified Category: Medical Qualifiers: Dysphagia type: pharyngoesophageal phase Qualified Code(s): R13.14 - Dysphagia, pharyngoesophageal phase (3) Postprandial epigastric pain: Code(s): R10.13 - Epigastric pain (4) GERD (gastroesophageal reflux disease): Code(s): K21.9 - Gastro-esophageal reflux disease without esophagitis Qualifiers: Esophagitis presence: esophagitis presence not specified Qualified Code(s): K21.9 - Gastro-esophageal reflux disease without esophagitis (5) Constipation: Code(s): K59.00 - Constipation, unspecified Qualifiers: Constipation type: slow transit constipation Qualified Code(s): K59.01 - Slow transit constipation Plan Patient continues to have dysphagia pharyngeal/pharyngeoesophageal. Will send patient for modified barium swallow. Change PPI to Nexium. Patient will start taking Dulcolax instead of senna. Increase fluid intake and activity to promote better bowel motility. Patient will return in 3 months will discuss going for colonoscopy and upper endoscopy. Patient is agreeable to this plan verbalizes understanding instructions she was given the opportunity to ask questions and all questions answered. Thank you for allowing me to participate in her care Orders: Orders FL barium swallow modified Today R13.10 - Dysphagia, unspecified Medications: New bisacodyl (Dulcolax (bisacodyl)) 10 mg (2 x 5 mg) PO BEDTIME 180 tabs 4RF esomeprazole magnesium (Nexium) 40 mg PO DAILY 30 caps 5RF K21.9 - Gastro-esophageal reflux disease without esophagitis cholecalciferol (vitamin D3) 50 mcg PO DAILY 90 caps 3RF R79.89 - Other specified abnormal findings of blood chemistry Discontinued cholecalciferol (vitamin D3) Discontinued Reason: Doctor's Order 125 mcg PO DAILY 90 days 90 tabs 3RF Z86.39 - Personal history of other endocrine, nutritional and metabolic disease omeprazole Discontinued Reason: Doctor's Order 20 mg PO DAILY 30 caps 2RF K21.9 - Gastro-esophageal reflux disease without esophagitis sennosides (Natural Senna Laxative) Discontinued Reason: Doctor's Order 17.2 mg (2 x 8.6 mg) PO BEDTIME 60 tabs 3RF constipation K59.00 - Constipation, unspecified Coding Level of Care Code Est Pt Level 4 (33587) Diagnoses History of primary hyperparathyroidism Z86.39 Pharyngoesophageal dysphagia R13.14 Dysphagia type: pharyngoesophageal phase Postprandial epigastric pain R10.13 Gastroesophageal reflux disease, unspecified whether esophagitis present K21.9 Esophagitis presence: esophagitis presence not specified Slow transit constipation K59.01 Constipation type: slow transit constipation Time Spent (min) 35 Comment 20 minutes spent with patient and additional 15 minutes spent reviewing her records
[2024-05-25 15:03] VITALS: BP 142/84; PULSE 64; O2SAT 96; BMI 37.9
== END 2024-05-25 15:30 | disposition home or self-care (01) ==
PROVIDERS: PCP Registered Nurse Community Health; Visit Provider Nurse Practitioner Family
DX: Z86.39 Personal history of other endocrine, nutritional and metabolic disease (principal); R13.14 Dysphagia, pharyngoesophageal phase; R10.13 Epigastric pain; K21.9 Gastro-esophageal reflux disease without esophagitis; K59.01 Slow transit constipation
CPT/HCPCS: 99214

== ENCOUNTER → 2024-05-25 14:46 | Outpatient (BNVA) | payer MEDICARE, SELFPAY | PROVIDERS: PCP Registered Nurse Community Health; Visit Provider Nurse Practitioner Family | DX: K21.9 Gastro-esophageal reflux disease without esophagitis (principal); K59.01 Slow transit constipation; R13.14 Dysphagia, pharyngoesophageal phase; R10.13 Epigastric pain; Z86.39 Personal history of other endocrine, nutritional and metabolic disease | CPT/HCPCS: 99212 ==

== ENCOUNTER 2024-08-31 13:05 | Outpatient (AMB) | payer MEDICARE, MEDICAID, SELFPAY ==
[2024-08-31 13:10] VITALS: BP 144/80; PULSE 68; O2SAT 96; BMI 36.7
--- NOTE | 2024-08-31 13:10 | A.OFFVIS_ITS ---
Vital Signs 08/31/24 13:10 Height 5 ft Weight 187 lb 13.341 oz BMI 36.7 BP 144/80 H Blood Pressure Location Rt brachial Position Sitting Pulse 68 Pulse Source Pulse Oximeter Pulse Oximetry (%) 96 Oxygen Delivery Method Room Air Intake Visit Reasons: 3 mnth follow up Intake Note: esomeprazole magnesium 40 mg capsule,delayed release (Nexium) 40 mg PO DAILY 30 caps 5RF Faheem,Missy D 05/25/24 15:23 (Transmitted) bisacodyl 5 mg tablet,delayed release (Dulcolax (bisacodyl)) 10 mg (2 x 5 mg) PO BEDTIME 180 tabs 4RF Faheem,Missy D 05/25/24 15:23 (Transmitted) cholecalciferol (vitamin D3) 50 mcg (2,000 unit) capsule 50 mcg PO DAILY 90 caps 3RF Faheem,Missy D 05/25/24 15:27 (Transmitted) Pt is still taking all medications w/o difficulty. Pt states that they had attempted to schedule a radiology visit per our request but was unable to get a hold of radiology and lost connection with them the one time that she did reach someone. Relevant Flags or Indicators ? Requires Rag Inspector? Hayley Hartman presents in office today for a scheduled 3 mos FUV. CC; No recent labs, diagnostics. Relevant GI Sx as reported per pt? ?Reflux + vomiting. ?Dysphagia / Painful Swallowing (L collarbone pain additionally, pt believes this is related) ?Abdominal Pain - Epigastric ?Hx of any recent surgeries? None Rag Inspector Required: No Allergies No Known Allergies [No Known Allergies*] Allergy (Verified 08/31/24 13:10) HPI HPI 3 mnth follow up: Details: LAST VISIT: History of primary hyperparathyroidism Dysphagia Postprandial epigastric pain GERD (gastroesophageal reflux disease) Constipation Plan Patient continues to have dysphagia pharyngeal/pharyngeoesophageal. Will send patient for modified barium swallow. Change PPI to Nexium. Patient will start taking Dulcolax instead of senna. Increase fluid intake and activity to promote better bowel motility. Patient will return in 3 months will discuss going for colonoscopy and upper endoscopy. Patient is agreeable to this plan verbalizes understanding instructions she was given the opportunity to ask questions and all questions answered. ? Thank you for allowing me to participate in her care Orders Orders FL barium swallow modified Today R13.10 Medications New bisacodyl (Dulcolax (bisacodyl)) 10 mg (2 x 5 mg) PO BEDTIME 180 tabs 4RF esomeprazole magnesium (Nexium) 40 mg PO DAILY 30 caps 5RF K21.9 cholecalciferol (vitamin D3) 50 mcg PO DAILY 90 caps 3RF R79.89 Discontinued cholecalciferol (vitamin D3) Discontinued Reason: Doctor's Order 125 mcg PO DAILY 90 days 90 tabs 3RF Z86.39 omeprazole Discontinued Reason: Doctor's Order 20 mg PO DAILY 30 caps 2RF K21.9 sennosides (Natural Senna Laxative) Discontinued Reason: Doctor's Order 17.2 mg (2 x 8.6 mg) PO BEDTIME 60 tabs 3RF constipation K59.00 TODAY'S VISIT Patient is here today for follow-up and to discuss barium swallow. Patient reports that she has been feeling little better although occasionally she will still feel like she is having trouble swallowing certain food. Reflux improved, however she continues to have occasional acid reflux and occasional dyspepsia without odynophagia. Currently patient is taking Nexium and feels better. Barium swallow done and discussed with patient. No reflux seen, laryngeal penetration and disorganized motility seen as well achalasia possibility. Patie nt will be referred to go for upper endoscopy. Patient had colonoscopy in May of 2017 and 1 tubular adenoma found. According to guidelines patient should have 5-7 year follow-up and will be due to go next year. Will send her for colonoscopy as well. Patient denies melena, hematochezia, unintentional weight loss or ribbon like stools. Patient reports that her symptoms of acid reflux are worse in the evening and night time. Patient denies eating late at night. [facility] Medical History Dysphagia History of primary hyperparathyroidism Non-toxic multinodular goiter Hypothyroidism Obesity Intestinal malabsorption Surgical History H/O parathyroidectomy S/P fine needle aspiration H/O hand surgery History of colonoscopy Hx of tubal ligation H/O knee surgery Family History Father No problems noted. Mother No problems noted. Brother No problems noted. Sister No problems noted. Sister No problems noted. Sister No problems noted. Sister No problems noted. Son No problems noted. Son No problems noted. Son No problems noted. Daughter Congenital hypothyroidism Social History Alcohol intake: never Physical Exam Vital Signs: Last Vital Signs Pulse 68 08/31/24 13:10 BP 144/80 H 08/31/24 13:10 Pulse Ox 96 08/31/24 13:10 Oxygen Delivery Method Room Air 08/31/24 13:10 BMI result Body Mass Index 36.7 Results Reviewed Results Reviewed: UPPER GI SERIES WITH BARIUM SWALLOW FINDINGS: Lateral cine images of the oropharynx and hypopharynx demonstrate normal swallow mechanism with normal epiglottic inversion and soft palate elevation. There is trace laryngeal penetration with thick barium. No tracheal penetration, glottic or subglottic aspiration identified. No nasopharyngeal reflux present. There is an irregular appearance of the anterior cervical esophagus at the level of C6 (RF 1-2, image 25). A small Zenker's diverticulum is present. Hypopharyngeal structures appear normal without evidence of mass or diverticulum. There is mild cricopharyngeal achalasia present. Dual and single contrast images of the esophagus demonstrates mildly tortuous course. No evidence of stricture, mass, or large ulcerations identified. Granular appearance of the mucosa suggests esophagitis. Esophageal peristalsis is mildly disorganized. A small type I hiatal hernia is present. Gastroesophageal reflux is seen up to the aortic arch. Dual contrast and single contrast images of the stomach demonstrated a contour consistent with prior history of sleeve gastrectomy. Evaluation of the gastric mucosa is limited due to lack of distention from poor tolerance of the effervescent granules. Grossly no mucosal abnormality. No mass. Contrast freely passed into the gastric antrum and duodenal bulb without delay. Single and air-contrast images of the duodenal bulb demonstrate no abnormality. Tiny diverticulum in segment 2, and segment 3. The duodenal sweep has a normal appearance, course, and mucosal fold appearance. No malrotation. The imaged proximal jejunum has a normal fold pattern and caliber. FLUOROSCOPY TIME: 3 minutes 23 seconds Number of Spot Images: 11 Number of Cine: 13 DOSE AREA PRODUCT: 2290 uGy-m2 (microgray-meter squared) FL/FL upper GI w air w Ba Swallow IMPRESSION: 1. Trace laryngeal penetration with thick barium. 2. There is a mildly irregular appearance of the anterior cervical esophagus at the level of the cricopharyngeus of unknown clinical etiology/significance. Recommend direct visualization on endoscopy. 3. Small Zenker's diverticulum. 4. Mild cricopharyngeal achalasia. 5. Mildly disorganized esophageal peristalsis. Granular mucosa of the esophagus suggesting esophagitis. 6. Small type I hiatal hernia with moderate gastroesophageal reflux. 7. Postsurgical changes consistent with prior history of sleeve gastrectomy. Evaluation of the gastric mucosa is limited due to lack of distention from poor tolerance of the effervescent granules.. Assessment & Plan Assessment & Plan (1) Dysphagia: Code(s): R13.10 - Dysphagia, unspecified Category: Medical Qualifiers: Dysphagia type: pharyngoesophageal phase Qualified Code(s): R13.14 - Dysphagia, pharyngoesophageal phase (2) Postprandial epigastric pain: Code(s): R10.13 - Epigastric pain (3) GERD (gastroesophageal reflux disease): Code(s): K21.9 - Gastro-esophageal reflux disease without esophagitis Qualifiers: Esophagitis presence: esophagitis presence not specified Qualified Code(s): K21.9 - Gastro-esophageal reflux disease without esophagitis (4) Constipation: Code(s): K59.00 - Constipation, unspecified Qualifiers: Constipation type: slow transit constipation Qualified Code(s): K59.01 - Slow transit constipation Plan Patient will continue Nexium, will add famotidine at bedtime. Avoid dietary triggers and late night snacking staying upright for minimum 3 hours after meals discussed with patient. Patient will take Dulcolax daily. I will send her for procedure. She will return in 3 months to discuss the prep. Message sent to surgical schedulers to book the procedure for patient upper endoscopy will be order as well due to dysphagia to rule out achalasia, Schatzki ring, esophageal narrowing Medications: New famotidine (Pepcid) 20 mg PO BEDTIME 30 tabs 3RF K21.9 - Gastro-esophageal reflux disease without esophagitis Coding Level of Care Code Est Pt Level 4 (32588) Diagnoses Pharyngoesophageal dysphagia R13.14 Dysphagia type: pharyngoesophageal phase Postprandial epigastric pain R10.13 Gastroesophageal reflux disease, unspecified whether esophagitis present K21.9 Esophagitis presence: esophagitis presence not specified Slow transit constipation K59.01 Constipation type: slow transit constipation Time Spent (min) 35 Comment 20 minutes spent with patient and additional 15 minutes spent reviewing her records
== END 2024-08-31 13:43 | disposition home or self-care (01) ==
PROVIDERS: PCP Registered Nurse Community Health; Visit Provider Nurse Practitioner Family
DX: R13.14 Dysphagia, pharyngoesophageal phase (principal); R10.13 Epigastric pain; K21.9 Gastro-esophageal reflux disease without esophagitis; K59.01 Slow transit constipation
CPT/HCPCS: 99214

== ENCOUNTER → 2024-08-31 13:05 | Outpatient (BNVA) | payer MEDICARE, MEDICAID, SELFPAY | PROVIDERS: PCP Registered Nurse Community Health; Visit Provider Nurse Practitioner Family | DX: K21.9 Gastro-esophageal reflux disease without esophagitis (principal); R13.14 Dysphagia, pharyngoesophageal phase; R10.13 Epigastric pain; K59.01 Slow transit constipation | CPT/HCPCS: 99212 ==

== ENCOUNTER 2024-12-08 11:33 | Outpatient (AMB) | payer MEDICARE, MEDICAID, SELFPAY ==
--- NOTE | 2024-12-08 11:41 | MHC.OFFVIS ---
Vital Signs 12/08/24 11:42 Height 5 ft Weight 185 lb 3.013 oz BMI 36.2 BP 110/54 L Blood Pressure Location Lt radial Position Sitting Pulse 63 Intake Visit Reasons: Discuss colo / Pre Op Intake Note: Minnie presents in the office to discuss having a colonoscopy. CC: States that she is getting over being sick. Other than that denies any concerns at this time. Allergies No Known Allergies [No Known Allergies*] Allergy (Verified 12/08/24 11:42) HPI HPI Discuss colo / Pre Op: Details: LAST VISIT: Dysphagia Postprandial epigastric pain GERD (gastroesophageal reflux disease) Constipation Plan Patient will continue Nexium, will add famotidine at bedtime. Avoid dietary triggers and late night snacking staying upright for minimum 3 hours after meals discussed with patient. Patient will take Dulcolax daily. I will send her for procedure. She will return in 3 months to discuss the prep. Message sent to surgical schedulers to book the procedure for patient upper endoscopy will be order as well due to dysphagia to rule out achalasia, Schatzki ring, esophageal narrowing Medications New famotidine (Pepcid) 20 mg PO BEDTIME 30 tabs 3RF K21.9 TODAY'S VISIT Patient is here today for follow-up and to discuss going for colonoscopy and upper endoscopy. Patient reports that she has been feeling fairly well. Takes on esomeprazole daily and her symptoms are suppressed for the most part. She takes famotidine at bedtime. Recently patient has been sick with cold and flu. Denies any issues with anesthesia in the past. No history of sleep apnea. Patient is on low-dose aspirin. Patient denies any cardiac or respiratory symptoms. Reports that she was doing better with Senokot. Dulcolax causes cramping in his not working for her. [facility] Medical History Dysphagia History of primary hyperparathyroidism Non-toxic multinodular goiter Hypothyroidism Obesity Intestinal malabsorption Surgical History H/O parathyroidectomy S/P fine needle aspiration H/O hand surgery History of colonoscopy Hx of tubal ligation H/O knee surgery Family History Father No problems noted. Mother No problems noted. Brother No problems noted. Sister No problems noted. Sister No problems noted. Sister No problems noted. Sister No problems noted. Son No problems noted. Son No problems noted. Son No problems noted. Daughter Congenital hypothyroidism Social History Alcohol intake: never Review of Systems Const Denies weight gain and Denies weight loss ENT Reports no additional complaints, Denies dysphagia and Denies odynophagia Card Reports no additional complaints Resp Reports no additional complaints GI Reports abdominal pain, Denies belching, Denies melena, Denies bloating, Denies change in bowel habits, Reports constipation, Denies dysphagia, Denies excessive flatus, Denies dyspepsia, Reports heartburn, Denies diarrhea, Denies loose stools, Denies nausea, Denies odynophagia and Denies vomiting Reports no additional complaints Musc Reports no additional complaints Neuro Reports no additional complaints Psych Reports no additional complaints Endo Reports no additional complaints Physical Exam Vital Signs: Last Vital Signs Pulse 63 12/08/24 11:42 BP 110/54 L 12/08/24 11:42 BMI result Body Mass Index 36.2 Const General: healthy appearing and no acute distress Nutritional Appearance: obese Orientation/consciousness: patient oriented x3 Resp Effort & Inspection: normal respiratory effort, able to speak in complete sentences, no tracheal deviation and symmetric chest movement Auscultation: clear to auscultation bilaterally Cardio Rate: regular rate GI Inspection: Yes normal to inspection, No distended and Yes obesity Palpation (GI): Soft to palpation, not firm, nontender and No hepatosplenomegaly present Auscultation: normal bowel sounds General: Yes no CVA tenderness Back/Spine/Pelvis Back: no CVA tenderness Skin General skin exam: elasticity normal, turgor normal and dry skin Neuro General: patient oriented x3 Psych Appearance: grossly normal Mental Status: mental status grossly normal Assessment & Plan Assessment & Plan (1) Dysphagia: Code(s): R13.10 - Dysphagia, unspecified Category: Medical Qualifiers: Dysphagia type: pharyngoesophageal phase Qualified Code(s): R13.14 - Dysphagia, pharyngoesophageal phase (2) Postprandial epigastric pain: Code(s): R10.13 - Epigastric pain (3) GERD (gastroesophageal reflux disease): Code(s): K21.9 - Gastro-esophageal reflux disease without esophagitis Qualifiers: Esophagitis presence: esophagitis presence not specified Qualified Code(s): K21.9 - Gastro-esophageal reflux disease without esophagitis (4) Constipation: Code(s): K59.00 - Constipation, unspecified Qualifiers: Constipation type: slow transit constipation Qualified Code(s): K59.01 - Slow transit constipation (5) Screen for colon cancer: Code(s): Z12.11 - Encounter for screening for malignant neoplasm of colon Plan Patient will be sent for upper endoscopy and colonoscopy. What to expect before during and after procedure discussed with patient. Stressed the importance of good bowel prep and clear liquid diet. Patient wants to take senna versus Dulcolax to help her move her bowels. Patient denies any issues with anesthesia in the past. On low-dose aspirin. Denies any cardiac or respiratory symptoms. I will see patient after the procedure, sooner on as needed basis. Patient is agreeable to this plan and verbalizes understanding of instructions. She was given the opportunity to ask questions and all questions answered. Thank you for allowing me to participate in her care Medications: New sennosides (Natural Senna Laxative) 17.2 mg (2 x 8.6 mg) PO BEDTIME 180 tabs 3RF constipation K59.00 - Constipation, unspecified Discontinued bisacodyl Discontinued Reason: Doctor's Order 10 mg (2 x 5 mg) PO BEDTIME 180 tabs 4RF Coding Level of Care Code Est Pt Level 4 (36957) Complex EM visit Add On G2211 Diagnoses Pharyngoesophageal dysphagia R13.14 Dysphagia type: pharyngoesophageal phase Postprandial epigastric pain R10.13 Gastroesophageal reflux disease, unspecified whether esophagitis present K21.9 Esophagitis presence: esophagitis presence not specified Slow transit constipation K59.01 Constipation type: slow transit constipation Screen for colon cancer Z12.11 Time Spent (min) 35 Comment 25 minutes spent with patient and additional 10 minutes spent reviewing her records
[2024-12-08 11:42] VITALS: BP 110/54; PULSE 63; BMI 36.2
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
--- OUTSIDE RECORDS SUMMARY | 2024-12-08 14:42 | XMS_ITS | Encounter Summary ---
Author Organization [employer] Address 75 [facility] 7t [place] [address] Care Team Providers Care Ruling Machine Set Up Operator Name Role Phone Alma Rosa Neely MD Primary Care Provider [phone] Encounter Details Date Type Department Care Team (Late st Contact Info) Description 11/13/2023 Orders Only [facility] [address] [place], [place] [phone] Alma Rosa Neely MD 230 [place], [place] [phone] Social History Tobacco Use Types Packs/Day Years Used Date Smoking Tobacco: Never Smokeless Tobacco: Never Alcohol Use Standard Drinks/Week Comments Never 0 (1 standard drink = 0.6 oz pur e alcohol) Depression Answer Date Recorded Patient Health Questionnaire-9 Score 0 11/04/2023 Patient Health Questionnaire-9 Score 0 11/04/2023 Last PHQ-9: Questionnaire Data Not on file 0 11/04/2023 Housing Stability Answer Date Recorded What is your housing situation today? I have cristel croft 11/04/[address] you [...] Date Recorded Patient Health Questionnaire-2 Score 0 11/04/2023 Comments Unknown Sex and Gender Information Value Date Recorded Sex Assigned at Female 08/06/2022 10:16 AM EDT Legal Sex Female 10:16 AM EDT Gender Identity Female 11/03/2023 7:15 PM EST Sexual Orientation Choose not to disclose 2021 10:16 AM EDT documented as of this encounter Plan of Treatment Upcoming Encounters Date Type Department Care Team (Late st Contact Info) Description 01/18/2025 2:00 PM EDT Office Visit [address] [address] Alma Rosa Neely MD [address] [place] [address] 02/22/2025 1:30 PM EDT Medication Management [address] [address] documented as of this encounter Goals Goal Patient Goal Type Associated Problems Recent Progress Patient-Stated? Author Blood Pressure < 140/90 Blood Pressure 144/86(2023 1:10 PM EDT) No Deonna Springer Record your blood pressure once per day Blood Pressure No Deonna Springer Patient will adhere to medication regimen General No Deonna Springer documented as of this encounter Visit Diagnoses Not on filedocumented in this encounter Additional Health Concerns Assessment Noted Time PHQ-9 Depression Total Score: 0 11/04/19 24 9:52 AM EST documented as of this encounter Care Teams Ruling Machine Set Up Operator Relationship Specialty Start Date End Date Alma Rosa Neely MD [address] [place] [address] PCP - General Family Medicine 07/11/23 documented as of this encounter
--- OUTSIDE RECORDS SUMMARY | 2024-12-08 14:42 | XMS_ITS | Encounter Summary ---
Author Organization [employer] Address 75 [facility] 7t [place] [address] Care Team Providers Care Carder Blankets Name Role Phone Alma Rosa Neely MD Primary Care Provider [phone] Encounter Details Date Type Department Care Team ([facility] st Contact Info) Description 11/25/2024 Telephone [facility] MED[facility]INE 230 [place], [place] [phone] Alma Rosa Neely MD 230 [place], [place] [phone] Social History Tobacco Use Types Packs/Day Years [...] AM EDT documented as of this encounter Miscellaneous Notes * Telephone Encounter - Monica Blancas - 11/25/2024 10:32 AM EST Placed outbound call to the patient to schedule Medicare Annual Wellness Visit. No answer at this time. Patient's name and were not confirmed. Left detailed message educating patient on Annual Wellness Visits. Provided contact information requesting a [facility] [phone] in order to schedule an AWV appointment. documented in this encounter Plan of Treatment Upcoming Encounters Date Type Department Care Team (Late st Contact Info) Description 01/18/2025 2:00 PM EDT Office Visit [facility] [address] [place] [address] Alma Rosa Neely MD [address] [place] [address] 02/22/2025 1:30 PM EDT Medication Management [facility] [address] [place] [address] documented as of this encounter Goals Goal [...] Noted Time PHQ-9 Depression Total Score: 0 02/03/20 24 11:32 AM EDT documented as of this encounter Care Teams Carder Blankets Relationship Specialty Start Date End Date Alma Rosa Neely MD 230 [place] [address] PCP - General Family Medicine 07/11/23 documented as of this encounter
--- OUTSIDE RECORDS SUMMARY | 2024-12-08 14:42 | XMS_ITS | Encounter Summary ---
Author Organization [employer] Address [address] [place] [address] 7t [place] [address] Care Team Providers Care Electric Tape Slitter Name Role Phone Brandi Babb Primary Care Provider [phone] Alma Rosa Neely MD Primary Care Provider [phone] Encounter Details Date Type Department Care Team (Late st Contact Info) Description 10/16/2022 Orders Only [facility] MEDICINE 230 [place] [address] Brandi Babb FNP [address] [place] [address] [place] [address] Social History Tobacco Use Types Packs/Day Years Used Date Smoking Tobacco: Never Smokeless Tobacco: Never Alcohol Use Standard Drinks/Week Comments Never 0 (1 standard drink = 0.6 oz pur e alcohol) Depression Answer Date Recorded Patient Health Questionnaire-9 Score 0 10/09/2022 Depression Answer Date Recorded Patient Health Questionnaire-2 Score 0 10/09/2022 Comments Unknown Sex and Gender Information Value Date Recorded Sex Assigned at Female 08/06/2022 10:16 AM EDT Legal Sex Female 10:16 AM EDT Gender Identity Female 11/03/2023 7:15 PM EST Sexual Orientation Choose not to disclose 2021 10:16 AM EDT COVID-19 Exposure Response Date Recorded In the last 10 days, have yo u been in contact with someone who was confirmed or suspected to have Coronavirus/COVID-19? No / Unsure 10/09/2022 8:45 AM EST documented as of this encounter Plan of Treatment Upcoming Encounters Date Type Department Care Team (Late st Contact Info) Description 01/18/2025 2:00 PM EDT Office Visit [facility] [address] [place] [address] 02/22/2025 1:30 PM EDT Medication Management [address] [address] documented as of this encounter Visit Diagnoses Not on filedocumented in this encounter Additional Health Concerns Assessment Noted Time PHQ-9 Depression Total Score: 0 10/09/19 23 9:09 AM EST documented as of this encounter Care Teams Electric Tape Slitter Relationship Specialty Start Date End Date Brandi Babb FNP PCP - General Family Medicine 06/02/22 07/10/23 Alma Rosa Neely MD [address] [place] [address] PCP - General Family Medicine 07/11/23 documented as of this encounter
--- OUTSIDE RECORDS SUMMARY | 2024-12-08 14:42 | XMS_ITS | Encounter Summary ---
Author Organization [employer] Address 75 [facility] 7t [place] [address] Care Team Providers Care Geothermal Heat Pump Machinist Name Role Phone Alma Rosa Neely MD Primary Care Provider [phone] Encounter Details Date Type Department Care Team (Late st Contact Info) Description 01/27/2024 Orders Only [facility] MEDICINE 230 [place] [address] Provider, MD Fernando Social History Tobacco Use Types Packs/Day Years [...] your housing situation today? I have cristel lang 11/04/[address] you li [...] Description 01/18/2025 2:00 PM EDT Office Visit [address] [address] Alma Rosa Neely MD [address] [place] [address] 02/22/2025 1:30 PM EDT Medication Management [address] [address] documented as of this encounter Goals Goal Patient Goal Type Associated Problems Recent Progress Patient-Stated? Author Blood Pressure < 140/90 Blood Pressure 144/86(2023 1:10 PM EDT) No Deonna Springer Record your blood pressure once per day Blood Pressure No Deonna Springer Patient will adhere to medication regimen General No Deonna Springer documented as of this encounter Procedures Procedure Name Priority Date/Time Associated Diagnosis Comments COLONOSCOPY Routine 05/07/2017 11:42 AM EDT documented in this encounter Results * Hm Colonoscopy (05/07/2017 11:42 AM EDT) us Historical Provider HEALTH MAINTENANCE Final Result documented in this encounter Visit Diagnoses Not on filedocumented in this encounter Additional Health Concerns Assessment Noted Time PHQ-9 Depression Total Score: 0 11/04/19 24 9:52 AM EST documented as of this encounter Care Teams Geothermal Heat Pump Machinist Relationship Specialty Start Date End Date Alma Rosa Neely MD [address] [place] [address] PCP - General Family Medicine 07/11/23 documented as of this encounter
--- OUTSIDE RECORDS SUMMARY | 2024-12-08 14:42 | XMS_ITS | Encounter Summary ---
Author Organization [employer] Address 75 [facility] 7t [place] [address] Care Team Providers Care Custom Tailor Apprentice Name Role Phone Alma Rosa Neely MD Primary Care Provider [phone] Reason for Visit * Reason Onset Date Comments recall 11/17/2024 Encounter Details Date Type Department Care Team ([facility] st Contact Info) Description 11/17/2024 Telephone [facility] 230 [place], [place] [phone] Alma Rosa Neely MD 230 [place], [place] [phone] recall Social History Tobacco Use Types Packs/Day Years [...] encounter Miscellaneous Notes * Telephone Encounter - Swathi Vanessa [place] - 11/17/2024 4:01 PM EST T/C placed spoke with pt, pt agreed to come in on 01/18/25 at 2pm documented in this encounter Plan of Treatment Upcoming Encounters Date Type Department Care Team (Late st Contact Info) Description 01/18/2025 2:00 PM EDT Office Visit [address] [address] Alma Rosa Neely MD [address] [place] [address] 02/22/2025 1:30 PM EDT Medication Management [facility] [address] [place] [address] documented as of this encounter Goals Goal [...] documented as of this encounter Care Teams Custom Tailor Apprentice Relationship Specialty Start Date End Date Alma Rosa Neely MD 230 [place] [address] PCP - General Family Medicine 07/11/23 documented as of this encounter
== END 2024-12-08 13:32 | disposition home or self-care (01) ==
PROVIDERS: PCP Registered Nurse Community Health; Visit Provider Nurse Practitioner Family
DX: R13.14 Dysphagia, pharyngoesophageal phase (principal); K21.9 Gastro-esophageal reflux disease without esophagitis; K59.01 Slow transit constipation; Z12.11 Encounter for screening for malignant neoplasm of colon
CPT/HCPCS: 99214; G2211

== ENCOUNTER → 2024-12-08 11:33 | Outpatient (BNVA) | payer MEDICARE, MEDICAID, SELFPAY | PROVIDERS: PCP Registered Nurse Community Health; Visit Provider Nurse Practitioner Family | DX: Z12.11 Encounter for screening for malignant neoplasm of colon (principal); K21.9 Gastro-esophageal reflux disease without esophagitis; K59.01 Slow transit constipation; R13.14 Dysphagia, pharyngoesophageal phase; R10.13 Epigastric pain | CPT/HCPCS: 99212 ==

== ENCOUNTER 2025-01-19 05:54 | Day surgery (SDC) | payer MEDICARE, MEDICAID, SELFPAY ==
[2025-01-15 12:22] VITALS: BMI 36.1
--- OUTSIDE RECORDS SUMMARY | 2025-01-15 13:02 | XMS_ITS | Clinical Summary ---
Author Organization [employer] Address 75 [facility] 7t [place] [address] Care Team Providers Care Brim Stiffener Name Role Phone Alma Rosa Neely MD Primary Care Provider [phone] Allergies No known active allergies Medications acetaminophen [...] Encounters Date Type Department Care Team Description 01/07/2025 Patient Outreach [facility] MEDICINE 230 [place] [address] Alma Rosa Neely MD Pre-visit Planning (SDOH screening negative and tobacco screening negative) 12/18/2024 Population Health Risk Score [facility] Department [address] [phone] Provider, Population Health Generic 11/25/2024 Telephone [facility] MED[facility] [address] [place], [place] [phone] Alma Rosa Neely MD 11/17/2024 Telephone [facility] [address] [place], [place] [phone] Alma Rosa Neely MD recall 11/01/2024 Refill [facility] [address] [place], [place] [phone] Alma Rosa Neely MD Acquired hypothyroidism from Last 3 Months Immunizations Name Administration [...] housing situation today? I have cristel lang 01/07/[address] you li ve. Do you have problems with any of the following? None of the above 01/07/2025 Food Insecurity Answer Date Recorded Within the past 12 months, y ou worried that your food would run out before you got money to buy more: Never True 01/07/2025 Within the past 12 months,th e food you bought just didn't last and you didn't have enough money to get more: Never True 12/2024 Transportation Answer Date Recorded In the past 12 months, has l ack of transportation kept you from medical appts, meetings, work or from getting things needed for daily living? No 01/07/2025 Utilities Answer Date Recorded In the past 12 months, has t he electric, gas, oil or water company threatened to shut off services in your home? No 01/07/2025 Depression Answer Date Recorded Patient Health Questionnaire-2 Score 0 02/03/2024 Internet Access Answer Date Recorded Internet Access Q1 Yes 01/07/2025 Internet Access Q2 Not on file 01/07/2025 Comments Unknown Sex and Gender Information Value [...] Description 01/18/2025 2:00 PM EDT Office Visit [facility] MED[facility]INE [address] [place] [address] Alma Rosa Neely MD 230 [place] [address] 01/26/2025 8:00 AM EDT Office Visit [facility] ADULT DENTAL 230 [place] [address] Christophe Zepeda DDS 230 [place] [address] 02/22/2025 1:30 PM EDT Medication Management [facility] [address] [place] [address] Health Maintenance Due Date Last Done Comments CT Colonography 1953 FIT DNA/Cologuard 1953 FIT 1953 FOBT 1955 Sigmoidoscopy 1953 Alcohol/Substance Use Screening 1965 Dental Prophylaxis 11/20/2015 05/19/2015 Mammogram 04/05/2024 04/05/2022, 03/09, 06/22/2020, Additional history exists COVID-19 Vaccine ( season) 2024 12/19/2021, 01/13/2021 Influenza Vaccine (#1) 2024 , 10/09/2022, 07/28/2019, Additional history exists DTaP/Tdap/Td Vaccines (2 - Td or Tdap) 10/11/2024 10/11/2014 Dental Oral Exam 11/27/2024 05/26/2024, 10/28/2014 Depression Screening 02/02/2025 02/03/2024, 02/03/20 24 Diabetes: Hemoglobin A1C 02/02/2025 024, 10/09/2022, 04/26/2022, Additional history exists Dental X-Ray: Bitewings 05/27/2025 05/26/2024, 10/28 Tobacco Screening 07/09/2025 07/09/2024 SDOH Screening 01/07/2026 01/07/2025 Colonoscopy 05/07/2027 05/07/2017 Colorectal Cancer Screening 05/07/2027 [...] PM EDT) Hemoglobin A1c 5.6 <6.0 % [facility] Comment:Hemoglobin A1C Refer ence Range Adults: 4.8 - 6.0 % Non diabetic: < 6.0 % Goal: < 7.0 %Additional Action Suggested: > 8.0 %Note: Hemoglobin A1c results are invalid for patients with abnormal amounts of HbF. Blood transfusions may impact the HbA1c concentration in the patient sample. Estimated Average Glucose 114 mg/dL [facility] Comment:eAG = Estimated ave rage glucose which is %A1C expressed asaverage glucose, using the formula of the O0H-OeqzodgHretsak Glucose study (ADAG), Diabetes Care, Vol.31,#8,May. 2007 Blood Venous blood specimen / Unknown 02/03/2024 12:54 PM EDT 02/03/2024 4:13 PM EDT us Alma Rosa Neely MD LAB BLOOD ORDERABLES Final Res ult [facility] [address] [place] [phone] * (ABNORMAL) Lipid Panel, Standard (06/06/2023 9:11 AM EDT) Triglycerides 89 <150 mg/dL [facility] Comment:Desirable Triglyceri de: less than 150 mg/dLBorderline High Triglyceride 150-199 mg/dLHigh Triglyceride: 200-499 mg/dLVery High Triglyceride: greater than or equal to 5OO mg/dL Cholesterol 219(H) <200 mg/dL [facility] Comment:Desirable Cholestero l: less than 200 mg/dLBorderline High Cholesterol: 200-239 mg/dLHigh Cholesterol: greater than 239 mg/dL LDL Cholesterol Calculated 156(H) <100 mg/dL [facility] Comment:Desirable LDL: less than 100 mg/dLNear Optimal/Above Optimal LDL: 110- 129 mg/dLBorderline High LDL: 130-159 mg/dLHigh LDL: 160-189 mg/dLVery High LDL: greater than or equal to 190 mg/dL HDL Cholesterol 46 >40 mg/dL [facility] Comment:Desirable HDL: great er than 40 mg/dL Note: This HDL assay may give artificially low results in patients with liver disease. Blood Venous blood specimen / Unknown 06/06/2023 9:11 AM EDT 06/06/2023 11:42 AM EDT Brandi Babb EMBROIDERY SPECIALIST LAB BLOOD ORDERABLES Final Result Performing Organization Address [facility]/ZIP Co de Phone Number [facility] [address] [place] [address] [phone] * Mammography Report 1 (04/05/2022 1:50 PM EDT) Anatomical Region Laterality Modality Breast Bilateral Mammography 04/05/2022 1:50 PM EDT Narrative 04/10/2022 10:02 AM EDT Refer to the Notes tab for result details [facility] Procedure: Mammography Report 1 Procedure Note Provider, MD Fernando - 12/30/2022 Refer to the Notes tab for result details [facility] Procedure: Mammography Report 1 Amita Fisher EMBROIDERY SPECIALIST IMG BI PROCEDURES Final Result * HEPATITIS C ANTIBODY RFLX (10/27/2019 10:40 AM EST) HEPATITIS C ANTIBODY NONREACTIVE NONREACTIVE [facility] Comment: Antibodies to HCV not detected; does not exclude early acute HCV infection. 10/27/2019 10:4 0 AM EST Vivian Mabry NP HISTORICAL/NON ORDERABLE LABS Fi nal Result [facility] [address] [place] [address], * Hm Colonoscopy (05/07/2017 11:42 AM EDT) us Historical Provider HEALTH MAINTENANCE Final Result from Last 3 Months or Most Recently Relevant to Health Maintenance Insurance [place] [id number] HSN FULL [facility] DENTAL - HSN PARTIAL (MEDICAID) Care Teams Brim Stiffener Relationship Specialty Start Date End Date Alma Rosa Neely MD [address] [place] [address] PCP - General Family Medicine 07/11/23
--- OUTSIDE RECORDS SUMMARY | 2025-01-15 13:02 | XMS_ITS | Encounter Summary ---
Author Organization [employer] Address 75 [facility] 7t [place] [address] Care Team Providers Care Event Marketing Specialist Name Role Phone Alma Rosa Neely MD Primary Care Provider [phone] Encounter Details Date Type Department Care Team (Late st Contact Info) Description 11/13/2023 Orders Only [facility] 230 [place], [place] [phone] Alma Rosa Neely MD 230 [place], [place] [phone] Social History Tobacco Use Types Packs/Day Years [...] 2:00 PM EDT Office Visit [facility] [address] [place] [address] Alma Rosa Neely MD [address] [place] [address] 01/26/2025 8:00 AM EDT Office Visit [facility] [address] [place] [address] Christophe Zepeda DDS 230 [place] [address] 02/22/2025 1:30 PM EDT Medication Management [facility] [address] [place] [address] documented as of this encounter Goals Goal [...] documented as of this encounter Care Teams Event Marketing Specialist Relationship Specialty Start Date End Date Alma Rosa Neely MD 230 [place] [address] PCP - General Family Medicine 07/11/23 documented as of this encounter
--- OUTSIDE RECORDS SUMMARY | 2025-01-15 13:02 | XMS_ITS | Encounter Summary ---
Author Organization [employer] Address [address] [place] [address] 7t [place] [address] Care Team Providers Care Trailhead Maintenance Worker Name Role Phone Brandi Babb Primary Care Provider [phone] Alma Rosa Neely MD Primary Care Provider [phone] Encounter Details Date Type Department Care Team (Late st Contact Info) Description 10/16/2022 Orders Only [facility] MEDICINE [address] [place] [address] Brandi Babb FNP [address] [place] [address] Dept [place] [address] Social History Tobacco Use Types Packs/Day Years [...] Description 01/18/2025 2:00 PM EDT Office Visit [facility] MED[facility]INE [address] [place] [address] Alma Rosa Neely MD 230 [place] [address] 01/26/2025 8:00 AM EDT Office Visit [facility] ADULT DENTAL [address] [place], [place] [phone] Christophe Zeepda DDS [address] [place] [address] 02/22/2025 1:30 PM EDT Medication Management [facility] MED[facility] [address] [place] [address] documented as of this encounter Visit Diagnoses Not on filedocumented in this encounter Additional Health Concerns Assessment Noted Time PHQ-9 Depression Total Score: 0 10/09/19 23 9:09 AM EST documented as of this encounter Care Teams Trailhead Maintenance Worker Relationship Specialty Start Date End Date Brandi Babb FNP PCP - General Family Medicine 06/02/22 07/10/23 Alma Rosa Neely MD [address] [place] [address] PCP - General Family Medicine 07/11/23 documented as of this encounter
--- OUTSIDE RECORDS SUMMARY | 2025-01-15 13:02 | XMS_ITS | Encounter Summary ---
Author Organization [employer] Address 75 [facility] 7t [place] [address] Care Team Providers Care Agricultural Economics Professor Name Role Phone Alma Rosa Neely MD Primary Care Provider Encounter Details Date Type Department Care Team (Late st Contact Info) Description 01/27/2024 Orders Only [facility] MEDICINE 230 [place] [address] Provider, MD Fernando Social History Tobacco Use [...] your housing situation today? I have cristel sing 11/04/[address] you li [...] Description 01/18/2025 2:00 PM EDT Office Visit [facility] MEDICINE [address] [place] [address] Alma Rosa Neely MD 230 [place] [address] 01/26/2025 8:00 AM EDT Office Visit [facility] ADULT DENTAL [address] [place] [address] Christophe Zepeda DDS [address] [place] [address] 02/22/2025 1:30 PM EDT Medication Management [facility] MEDICINE [address] [place] [address] documented as of this encounter Goals Goal Patient Goal Type Associated Problems Recent Progress Patient-Stated? Author Blood Pressure < 140/90 Blood Pressure 144/86(2023 1:10 PM EDT) No Deonna Springer Record your blood pressure once per day Blood Pressure No Deonna Springer Patient will adhere to medication regimen General No Deonna pSringer documented as of this encounter Procedures Procedure Name Priority Date/Time Associated Diagnosis Comments HM COLONOSCOPY Routine 05/07/2017 11:42 AM EDT documented in this encounter Results * Hm Colonoscopy (05/07/2017 11:42 AM EDT) us Historical Provider HEALTH MAINTENANCE Final Result documented in this encounter Visit Diagnoses Not on filedocumented in this encounter Additional Health Concerns Assessment Noted Time PHQ-9 Depression Total Score: 0 11/04/19 24 9:52 AM EST documented as of this encounter Care Teams Agricultural Economics Professor Relationship Specialty Start Date End Date Alma Rosa Neely MD [address] [place] [address] PCP - General Family Medicine 07/11/23 documented as of this encounter
[2025-01-19 06:15] VITALS: BMI 35.3
[2025-01-19 06:17] VITALS: BP 145/83; PULSE 63; RESP 16; TEMP 36.1; O2SAT 93
--- NOTE | 2025-01-19 07:41 | P.CONAN_ITS ---
[facility] Active Problems Active Problems: All Active Problems Dysphagia (Acute) History of primary hyperparathyroidism (Acute) Non-toxic multinodular goiter (Acute) Hypothyroidism (Acute) BMI 31.0-31.9,adult (Acute) Obesity (Acute) Intestinal malabsorption (Acute) Past Medical History Medical History Dysphagia History of primary hyperparathyroidism Non-toxic multinodular goiter Hypothyroidism Obesity Intestinal malabsorption Family History Family History Father No problems noted. Mother No problems noted. Brother No problems noted. Sister No problems noted. Sister No problems noted. Sister No problems noted. Sister No problems noted. Son No problems noted. Son No problems noted. Son No problems noted. Daughter Congenital hypothyroidism Family history of problems with anesthesia: No Surgical History Surgical History H/O parathyroidectomy S/P fine needle aspiration H/O hand surgery History of colonoscopy Hx of tubal ligation H/O knee surgery History of Problems with Anesthesia: No Social History Social History Alcohol intake: never Patient Tobacco Use Status: Never used Tobacco Use of substances other than those prescribed or required for medical reasons: No Are you DNR?: No Advance Directives: No Advance Directives Information Provided: Yes Meds Allergies Allergy/AdvReac Type Severity Reaction Status Date / Time No Known Allergies Allergy Verified 01/19/25 06:11 [No Known Allergies*] Home Medications ?Medication ?Instructions ?Recorded ?Confirmed ?Last Taken ?Type aspirin 81 mg tablet,delayed 81 mg PO DAILY 07/09/20 01/19/25 01/11/25 History release hydrochlorothiazide 25 mg tablet 25 mg PO DAILY 02/16/21 01/19/25 Unknown History amlodipine 5 mg tablet 5 mg PO DAILY 03/19/24 01/19/25 Unknown History atorvastatin 20 mg tablet 20 mg PO DAILY 03/19/24 01/19/25 Unknown History calcium carbonate (Calcium Antacid) 400 mg PO BID 12/08/24 01/19/25 Unknown History Exam Height,Weight and Vital Signs: Height 5 ft Weight 181 lb Last Vital Signs Temp 96.9 F 04/15/25 06:17 Pulse 63 01/19/25 06:17 Resp 16 01/19/25 06:17 BP 145/83 H 01/19/25 06:17 Pulse Ox 93 01/19/25 06:17 O2 Del Method Room Air 01/19/25 06:17 Airway Mallampati Class: II TM Dist: >3cm Neck ROM: Full Loose/Missing/Broken Teeth: Yes Assessment and Plan Assessment Anesthesia Assessment: Anesthesia Plan Discussed and Chart Reviewed Final Anesthetic Review Family History of Problems with Anesthesia: No History of Problems with Anesthesia: No NPO: Yes ASA Class: III Final Preanesthetic Review: No Changes in Pt Med Stat, Meds/Allgs Chart Reviewed, Consent Obtained/Reviewed and Anes Risks/Benef Reviewed Patient Risk: Intermediate Procedure Risk: Low Anesthetic Plan Anesthetic Plan: MAC: Disposition: Standard PACU
--- NOTE | 2025-01-19 07:44 | P.HPSUR_ITS ---
Pre-Procedural Eval Section A - 24 Hr Update-Section A only Date of Service: 01/19/25 Section B - Complete if H&P > 30 days Chief Complaint: Encounter for screening for malignant neoplasm of Relevant Family History (Specify if Yes): No Relevant Social History: None Present Medications: see Short Stay Collaborative assessment Medical History: Significant History (Dysphagia History of primary hyperparath yroidism Non-toxic multinodular goiter Hypothyroidism Obesity Intestinal malabsorption) History of Previous Operations: Relevant previous surgery/procedure and date(s) (H/O parathyroidectomy S/P fine needle aspiration H/O hand surgery History of colonoscopy Hx of tubal ligation H/O knee surgery) Allergies: Allergies Allergy/AdvReac Type Severity Reaction Status Date / Time No Known Allergies Allergy Verified 01/19/25 06:11 [No Known Allergies*] Review of Systems Sugical H&P ROS: Negative: Constitution, Cardiovascular, Respiratory, Neurological, Psychiatric, Hem-Onc, Allergic/Immunologic, Gastrointestinal, Genitourinary, Musculoskeletal, Integumentary, Endocrine and Eyes/Ears/Nose/Throat Exam Surgical H&P Exam: Normal: HEENT, Normal: Heart, Normal: Lungs, Normal: Extremities, Normal: Abdomen, Normal: Skin and Normal: Neurological Plan Diagnosis/Plan: Unchanged I have reviewed the history and physical and performed a pertinent physical examination on my patient. No changes have occurred unless specified. Time Spent With Patient Time: Total time managing care of this patient today ____ minutes.
--- NOTE | 2025-01-19 08:02 | HO.OPN-COLON ---
Colonoscopy Operative Note Operative Note Date of Service: 01/19/25 Narrative: Operative Information Procedure Description: EGD, Colonoscopy Indication: dysphagia, screening Anesthesia: MAC FLEXIBLE TRANSORAL UPPER GASTROINTESTINAL ENDOSCOPY AND COLONOSCOPY PROCEDURE NOTE UPPER ENDOSCOPY Consent: Indications for the procedure and potential complications of bleeding, perforation, reaction to medications and missed diagnosis were discussed with the patient and informed consent was obtained. Instrument: Olympus GIF H 190 J mid size upper endoscope Monitoring: Vital signs and clinical assessment, continuous EKG monitoring, Pulse oximetry, Carbon Dioxide monitoring and blood pressure monitoring were done throughout the procedure. Procedure: The patient was placed in the left lateral decubitis position and pre-procedure medications were administered and a bite block was placed. The endoscope was inserted into the mouth and advanced under direct vision to the third part of duodenum. A careful inspection was made as the upper endoscope was withdrawn including a retroflexed examination of the proximal stomach; Findings and interventions are described below. Findings: Larynx:normal Esophagus: GE junction at 40 cm, diaphragm hiatus at 40 cm, mild esophagitis, bx taken from GEJ, distal esophagus -balloon dilation to 19 mm at LES and UES--no tears seen Stomach: mild erythema. Biopsies were obtained. Grade 2 flap valve on retroflexed examination of the cardia. sleeve gastrectomy changes seen with slight narrowing in distal stomach Duodenum: Normal bulb and descending duodenum, Intervention: Biopsies as noted above, balloon dilation COLONOSCOPY Instrument: Olympus variable stiffness pediatric scope 190L Colonoscopy Monitoring: Vital signs and clinical assessment, continuous EKG monitoring, Pulse oximetry, Carbon Dioxide monitoring and blood pressure monitoring were done throughout the procedure. Colon withdrawal time was 10 minutes. Procedure: The patient was placed in the left lateral decubitis position and pre-procedure medications were administered. After a digital rectal examination of the ano-rectum, the video colonoscope was inserted into the rectum and advanced through the colon to the cecum/TI. The colonoscope was slowly withdrawn in a retrograde panoramic fashion and the colon mucosa was carefully examined including a retroflexed view of the rectum. Findings and interventions are described below. Procedure Difficulty:moderate-pressure applied Findings: Terminal Ileum-normal Cecum:normal Ascending Colon: normal Transverse Colon -normal Descending Colon:normal Sigmoid Colon: normal Rectum: Retroflexion with small internal hemorrhoids, grade I Anorectum - normal Colon preparation: [place] Bowel Preparation Scale Right colon; 1-2 Transverse colon: 2 Left colon; 2 (0 = Unprepared colon segment with mucosa not seen due to solid stool that cannot be cleared. 1 = Portion of mucosa of the colon segment seen, but other areas of the colon segment not well seen due to staining, residual stool and/or opaque liquid. 2 = Minor amount of residual staining, small fragments of stool and/or opaque liquid, but mucosa of colon segment seen well. 3 = Entire mucosa of colon segment seen well with no residual staining, small fragments of stool or opaque liquid) Impression and Post Procedure Diagnosis: Endoscopy Findings: mild esophagitis mild gastritis sleeve gastrectomy Colonoscopy Findings: internal hemorrhoids Plan: Await Pathology results Repeat Colonoscopy in 5 years due to some areas of fair prep on right or earlier if clinically indicated High fiber diet leaflet avoid straining at stool, epsom salts and sitz bath, anusol supps or cream small meals given hx of sleeve and slight narrowing in distal stomach Above findings were reviewed with the patient and relevant handouts were provided if indicated.
[2025-01-19 08:25] VITALS: BP 116/64; PULSE 74; RESP 12; TEMP 36.2; O2SAT 97
[2025-01-19 08:40] VITALS: BP 142/81; PULSE 60; RESP 12; O2SAT 98
[2025-01-19 08:57] VITALS: BP 154/88; PULSE 60; RESP 16; TEMP 36.8; O2SAT 100
== END 2025-01-19 09:37 | disposition home or self-care (01) ==
PROVIDERS: PCP Internal Medicine; Visit Provider Internal Medicine Gastroenterology
PROC: (CPT 43249; principal; 2025-01-19 07:30)
DX: Z12.11 Encounter for screening for malignant neoplasm of colon (principal); K64.0 First degree hemorrhoids; K59.01 Slow transit constipation; R13.14 Dysphagia, pharyngoesophageal phase; K21.9 Gastro-esophageal reflux disease without esophagitis; K20.80 Other esophagitis without bleeding; K29.50 Unspecified chronic gastritis without bleeding; K44.9 Diaphragmatic hernia without obstruction or gangrene; Z90.3 Acquired absence of stomach [part of]; E03.9 Hypothyroidism, unspecified; E04.2 Nontoxic multinodular goiter; E66.9 Obesity, unspecified; Z68.36 Body mass index [BMI] 36.0-36.9, adult; Z79.899 Other long term (current) drug therapy; Z79.82 Long term (current) use of aspirin; Z98.890 Other specified postprocedural states
CPT/HCPCS: 43249; 43239; G0121; 88305; 88313; 88342; C1726; J2003; J2704

== ENCOUNTER → 2025-01-19 05:54 | Outpatient (BNV) | payer MEDICARE, MEDICAID, SELFPAY | PROVIDERS: PCP Internal Medicine; Visit Provider Internal Medicine Gastroenterology | DX: Z12.11 Encounter for screening for malignant neoplasm of colon (principal); K64.0 First degree hemorrhoids; R13.10 Dysphagia, unspecified; K20.90 Esophagitis, unspecified without bleeding; K29.70 Gastritis, unspecified, without bleeding; Z90.3 Acquired absence of stomach [part of]; Z98.84 Bariatric surgery status | CPT/HCPCS: 43239; 43249; G0121 ==